=== PATIENT | male | born 1950 | race Caucasian/White ===

== ENCOUNTER 2018-08-27 07:26 | Outpatient (CLI) | payer MEDICARE, BC, SELFPAY ==
[2018-08-27 08:36] LABS: Uric Acid 6.2 mg/dL (3.5-7.2)
[2018-08-27 08:41] LABS: ALT 35 U/L (12-78); AST 27 U/L (15-37); Albumin 4.2 g/dL (3.4-5.0); Alkaline Phosphatase 64 U/L (46-116); Anion Gap 9.3 mmol/L (3-11); BUN 32 mg/dL (7-18); Bilirubin, Total 0.9 mg/dL (0.2-1.0); CO2 29.7 mmol/L (21.0-32.0); CREATININE 1.37 mg/dL (0.70-1.30); Calcium 9.1 mg/dL (8.5-10.1); Chloride 101 mmol/L (98-107); Cholesterol 226 mg/dL (50-200); Estimated GFR 51.83 (mL/min/1.73m2); Glucose 113 mg/dL (70-100); HDL Cholesterol 65 mg/dL (40-60); LDL CHOLESTEROL 136 mg/dL (<100); Potassium 4.7 mmol/L (3.5-5.1); Sodium 140 mmol/L (136-145); Total Protein 7.5 g/dL (6.4-8.2); Triglyceride 80 mg/dL (30-150)
== END 2018-08-27 07:46 ==
PROVIDERS: PCP Family Medicine; Visit Provider Family Medicine
DX: E78.5 Hyperlipidemia, unspecified (principal); M10.9 Gout, unspecified
CPT/HCPCS: 36415; 80053; 80061; 83721; 84550

== ENCOUNTER 2020-01-07 01:16 | Outpatient (CLI) | payer MEDICARE, BC, SELFPAY ==
[2020-01-07 12:46] LABS: ALT 42 U/L (16-63); AST 26 U/L (15-37); Albumin 4.2 g/dL (3.4-5.0); Alkaline Phosphatase 59 U/L (46-116); Anion Gap 6.7 mmol/L (3-11); BUN 32 mg/dL (7-18); Bilirubin, Total 0.7 mg/dL (0.2-1.0); CO2 31.3 mmol/L (21.0-32.0); CREATININE 1.53 mg/dL (0.70-1.30); Calcium 9.3 mg/dL (8.5-10.1); Calculated LDL 138 mg/dL (<100); Chloride 102 mmol/L (98-107); Cholesterol 225 mg/dL (<200); Estimated GFR 45.49 (mL/min/1.73m2); Glucose 109 mg/dL (74-106); HDL Cholesterol 62 mg/dL (40-60); Potassium 3.9 mmol/L (3.5-5.1); Sodium 140 mmol/L (136-145); Total Protein 7.4 g/dL (6.4-8.2); Triglyceride 129 mg/dL (<150)
== END 2020-01-07 01:36 ==
PROVIDERS: PCP Family Medicine; Visit Provider Family Medicine
DX: E78.5 Hyperlipidemia, unspecified (principal)
CPT/HCPCS: 36415; 80053; 80061

== ENCOUNTER 2021-08-15 13:09 | Outpatient (REF) | payer MEDICARE, BC, SELFPAY ==
[2021-08-15 15:04] LABS: Anion Gap 9.5 mmol/L (3-11); BUN 36 mg/dL (7-18); CO2 28.5 mmol/L (21.0-32.0); CREATININE 1.4 mg/dL (0.70-1.30); Calcium 8.8 mg/dL (8.5-10.1); Chloride 105 mmol/L (98-107); Glucose 104 mg/dL (74-106); Potassium 4.5 mmol/L (3.5-5.1); Sodium 143 mmol/L (136-145)
[2021-08-16 10:00] LABS: HIV-1/2 Ag & Ab Screen Negative (Negative)
== END 2021-08-15 13:10 | disposition home or self-care (01) ==
LOC: LBO 13:09
PROVIDERS: PCP Family Medicine; Visit Provider Family Medicine
DX: I10 Essential (primary) hypertension (principal); Z11.3 Encounter for screening for infections with a predominantly sexual mode of transmission; Z11.4 Encounter for screening for human immunodeficiency virus [HIV]
CPT/HCPCS: 36415; 80048; 87389

== ENCOUNTER 2021-08-15 13:42 | Outpatient (CLI) | payer MEDICARE, BC, SELFPAY | END 2021-08-15 13:43 | disposition home or self-care (01) | LOC: LBO 13:48 | PROVIDERS: PCP Family Medicine; Visit Provider Family Medicine ==

== ENCOUNTER 2021-09-06 11:07 | Outpatient (CLI) | payer MEDICARE, BC, SELFPAY ==
--- NOTE | 2021-09-06 10:30 | DI.RAD_ITS ---
Exam(s) XR KNEE RT 3V AP,LAT,SHRUTHI EXAM: XR KNEE RT 3V AP,LAT,SHRUTHI CLINICAL HISTORY: R KNEE PAIN. TECHNIQUE: 2D digital imaging was performed. Three views. COMPARISON: No exams were available for comparison FINDINGS: BONES: No acute fracture is present. No bony destructive lesion is seen. JOINTS: Moderate narrowing of the lateral femoral tibial joint space with moderate periarticular spu rring. Mild spurring seen elsewhere.. A small joint effusion is seen. SOFT TISSUE: Prominent venous varicosities in the medial soft tissues. Calcifications anterior to th e patella. IMPRESSION: Moderate degenerative changes of the lateral femoral tibial joint space. DATA REPOSITORY: RADIATION DOSE DELIVERED:
== END 2021-09-06 11:08 | disposition home or self-care (01) ==
LOC: DIORS 11:08
PROVIDERS: PCP Family Medicine; Referring Provider Family Medicine; Visit Provider Physician Assistant
DX: M17.11 Unilateral primary osteoarthritis, right knee
CPT/HCPCS: 20610; 73562; 99203; J1040

== ENCOUNTER → 2021-09-30 00:10 | Outpatient (CLI) | payer MEDICARE, BC, SELFPAY ==
--- NOTE | 2021-09-30 06:30 | DI.US_ITS ---
Exam(s) US AAA SCREENING EXAM: US AAA SCREENING CLINICAL HISTORY: screening for aaa, former smoker, z87.891 COMPARISON: US ABDOMEN ULTRASOUND (P) from 02/20/2017 FINDINGS: There is no evidence of abdominal aortic aneurysm. Maximum diameter of the abdominal aorta is 2.6 ce ntimeters, proximally. The abdominal aorta appears to taper normally. However, there does appear to be some prominence of the diameter of the partially visualized common i liac arteries. Right common iliac artery exhibits maximum diameter 1.8 cm. Left common iliac artery exhibits maximum diameter 1.3 cm. IMPRESSION: No evidence of abdominal aortic aneurysm. 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 DATA REPOSITORY:
== END ==
PROVIDERS: PCP Family Medicine; Visit Provider Family Medicine
DX: Z13.6 Encounter for screening for cardiovascular disorders (principal); Z87.891 Personal history of nicotine dependence
CPT/HCPCS: 76706

== ENCOUNTER 2022-01-02 11:40 | Outpatient (CLI) | payer MEDICARE, BC, SELFPAY ==
--- NOTE | 2022-01-02 11:00 | DI.RAD_ITS ---
Exam(s) XR KNEE LT 3V AP,LAT,SHRUTHI EXAM: XR KNEE LT 3V AP,LAT,SHRUTHI CLINICAL HISTORY: pain. TECHNIQUE: 2D digital imaging was performed. Three views. COMPARISON: CR XR KNEE RT 3V AP,LAT,SHRUTHI from 09/06/2021 FINDINGS: BONES: No acute fracture is present. No bony destructive lesion is seen. JOINTS: The knee is normally aligned. No joint effusion is seen. Mild joint space narrowing. Mild to moderate periarticular spurring, greater at the patellofemoral joint. SOFT TISSUE: Few posterior calcifications. IMPRESSION: Kpya-ym-bhsbmefd degenerative changes. DATA REPOSITORY: RADIATION DOSE DELIVERED:
== END 2022-01-02 11:41 | disposition home or self-care (01) ==
LOC: DIORS 11:41
PROVIDERS: PCP Family Medicine; Referring Provider Family Medicine; Visit Provider Physician Assistant Surgical
DX: M17.12 Unilateral primary osteoarthritis, left knee (principal); M17.11 Unilateral primary osteoarthritis, right knee
CPT/HCPCS: 20610; 73562; J1040

== ENCOUNTER → 2022-08-21 10:16 | Outpatient (BNVA) | payer MEDICARE, BC, SELFPAY | PROVIDERS: PCP Family Medicine; Referring Provider Family Medicine; Visit Provider Physician Assistant | DX: M17.11 Unilateral primary osteoarthritis, right knee (principal); M17.12 Unilateral primary osteoarthritis, left knee | CPT/HCPCS: 20610; J1040 ==

== ENCOUNTER 2022-09-04 03:28 | Outpatient (CLI) | payer MEDICARE, BC, SELFPAY ==
[2022-09-04 14:41] LABS: HCT 41.4 % (40.0-50.0); MCHC 33.8 % (32.0-36.0); MCV 101 fL (80-95); MPV 10.5 fL (8.0-11.0); Platelet Count 114 10^3/uL (130-400); RBC 4.12 10^6/uL (4.36-5.78); RDW 14.5 % (11.8-14.1); RDW-SD 53.8 fL; WBC 7.17 10^3/uL (4.4-10.8)
[2022-09-04 18:10] LABS: Anion Gap 6.3 mmol/L (3-11); BUN 29 mg/dL (7-18); CO2 30.7 mmol/L (21.0-32.0); CREATININE 1.4 mg/dL (0.70-1.30); Calcium 9.3 mg/dL (8.5-10.1); Chloride 103 mmol/L (98-107); Estimated GFR 53.74 (mL/min/1.73m2); Glucose 107 mg/dL (74-106); Potassium 4.4 mmol/L (3.5-5.1); Sodium 140 mmol/L (136-145)
== END 2022-09-04 03:29 | disposition home or self-care (01) ==
LOC: LBO 03:30
PROVIDERS: PCP Family Medicine; Visit Provider Student in an Organized Health Care Education/Training Program
DX: M17.11 Unilateral primary osteoarthritis, right knee; Z01.818 Encounter for other preprocedural examination; Z01.812 Encounter for preprocedural laboratory examination
CPT/HCPCS: 36415; 80048; 85027; 77073

== ENCOUNTER 2022-09-04 15:02 | Outpatient (CLI) | payer MEDICARE, BC, SELFPAY ==
--- NOTE | 2022-09-04 14:45 | DI.RAD_ITS ---
Exam(s) XR STANDING ALIGNMENT EXAM: XR STANDING ALIGNMENT CLINICAL HISTORY: PRE OP R TKA. TECHNIQUE: 2D digital imaging was performed. Four images were obtained. COMPARISON: CR XR KNEE RT 3V AP,LAT,SHRUTHI from 09/06/2021 CR XR KNEE LT 3V AP,LAT,SHRUTHI from 01/02/2022 FINDINGS: BONES: There are degenerative changes of the hips bilaterally characterized by joint space narrowing and acetabular spurring. There are degenerative changes of the knees bilaterally characterized by mookie int space narrowing and periarticular spurring. On the right, the findings are most prominent latera lly. On the left, the findings are most prominent medially. The ankles are well maintained.There is no significant leg length discrepancy. SOFT TISSUE: Atherosclerosis is present. IMPRESSION: Osteoarthritis of the knees. DATA REPOSITORY: RADIATION DOSE DELIVERED:
== END 2022-09-04 15:03 | disposition home or self-care (01) ==
LOC: DIORS 15:03
PROVIDERS: PCP Family Medicine; Referring Provider Family Medicine; Visit Provider Physician Assistant
DX: M17.11 Unilateral primary osteoarthritis, right knee (principal)
CPT/HCPCS: 77073

== ENCOUNTER 2022-09-12 05:56 | Day surgery (SDC) | payer MEDICARE, BC, SELFPAY ==
[2022-09-12] VITALS (12 sets, daily range): BP systolic 92–107; BP diastolic 35–86; PULSE 50–71; RESP 15–18; TEMP 36.2–36.7; O2SAT 92–100; BMI 29.4
[2022-09-12] MEDS: Gabapentin 300 MG CAP PO (06:18)
[2022-09-12] MEDS: Acetaminophen 500 MG TAB 1000 MG PO (06:18)
[2022-09-12] MEDS: Celecoxib 200 MG CAP 400 MG PO (06:18)
--- NOTE | 2022-09-12 06:26 | W.ANESPRE ---
General Info Date of Service Date Performed: 09/12/22 Height: 5 ft 11 in Weight: 95.6 kg Body Mass Index (BMI): 29.4 Surgical Procedure: Operation Date: 09/12/22 09:25 Proposed Procedure Side Surgeon p Knee Total Arthroplasty, Cementless CR Right Jose Guadalupe Puentes MD Meds Allergies and Home Medications Allergies Allergy/AdvReac Type Severity Reaction Status Date / Time Beta-Blockers AdvReac Intermediate Drowsiness Verified 09/12/22 06:06 (Beta-Adrenergic Bloc 1978 simvastatin AdvReac Intermediate tired Verified 09/12/22 06:06 Home Medication Medication Instructions Recorded acetaminophen 500 mg tablet 1,000 mg PO BID PRN 01/31/16 lovastatin 40 mg tablet See Rx Instructions .Route 08/14/22 .COMPLEX #90 tabs allopurinol 300 mg tablet 300 mg PO HS 09/11/22 lisinopril 10 1 tab PO HS 09/11/22 mg-hydrochlorothiazide 12.5 mg tablet omeprazole magnesium 20 mg 20 mg PO HS 09/11/22 capsule,delayed release Current Visit Medications: Current Medications Generic Name Dose Route Start Last Admin Trade Name Francisco Javierq PRN Reason Stop Dose Admin Acetaminophen 1,000 mg 09/12/22 06:00 09/12/22 06:18 Acetaminophen 500 Mg Tab PO 09/12/22 16:00 1,000 mg PREOP LEA Administration Celecoxib 400 mg 09/12/22 06:00 09/12/22 06:18 Celecoxib 200 Mg Cap PO 09/12/22 16:00 400 mg PREOP LEA Administration Gabapentin 300 mg 09/12/22 06:00 09/12/22 06:18 Gabapentin 300 Mg Cap PO 09/12/22 16:00 300 mg PREOP LEA Administration Tranexamic Acid 1,000 mg/ 60 mls @ 360 mls/hr 09/12/22 06:00 Sodium Chloride IVPB 09/12/22 16:00 PREOP LEA Ringer's Solution 1,000 mls @ 80 mls/hr 09/12/22 06:00 IV 09/12/22 23:59 INFUSION LEA Cefazolin Sodium/Dextrose 2 gm in 50 mls @ 100 mls/hr 09/12/22 06:00 Ancef Duplex IVPB 09/12/22 23:59 PREOP LEA IV Miscellaneous Supplies 1 each 06/13/23 06:00 Iv Access IV 09/12/22 23:59 DIRECTED LEA Sodium Chloride 0 ml 09/12/22 06:00 Normal Saline Flush 10 Ml Syr IV 09/12/22 23:59 PRN PRN Sodium Chloride 0 ml 09/12/22 06:00 Normal Saline 10 Ml Vial IJ 09/12/22 23:59 DIRECTED PRN Sterile Water 0 ml 09/12/22 06:00 Water,Injection,Sterile 10 Ml Vial IJ 09/12/22 23:59 DIRECTED PRN PFSH Active Problems Active Problems: Problem Status Onset Code 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 Acquired thrombocytopenia 01/14/01 D69.6 Cirrhosis K74.60 Family history of colon cancer in mother 08/07/16 Z80.0 Gout 04/02/85 M10.9 Hyperlipidemia 10/31/08 E78.5 Hypertension 04/03/77 I10 Pain, joint, multiple sites 06/22/11 M25.50 Malignant melanoma of skin of trunk 10/31/05 C43.59 Overweight 06/22/11 E66.3 Proteinuria 06/29/98 R80.9 Varicose veins of right lower extremity 10/23/14 I83.91 Chronic hepatitis 04/02/04 K73.9 GERD (gastroesophageal reflux disease) K21.9 Trigger finger M65.30 History of hepatitis C Z86.19 Cataract H26.9 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 Surgical History Surgical History Colonoscopy - IV Sedation (09/01/16) Colonoscopy - MAC (07/26/09) EGD - MAC (01/06/15) w/bx, antral mucosa w intestinal metaplasia and severe focally erosive reacitve goatropathy, H/O eye surgery 05/2022 right Hx of cataract removal with insertion of prosthetic lens 2020 bilateral LIVER BIOPSY (01/05/05) [facility] – [place], CIRRHOSIS S/P left cataract extraction (09/14/20) S/P right cataract extraction (09/01/20) Tobacco Smoking/Tobacco Use Status: Former Tobacco Use Alcohol Alcohol Intake: current Alcohol intake frequency: 0-2 drinks per day Alcohol type: wine Substance Use Substance use: Never Substance use type: does not use Vital Signs and Lab Results Vital Signs Most Recent Vital Signs in EMR: Most Recent Vital Signs Temp Pulse Resp BP Pulse Ox 36.4 C L 70 17 107/86 97 09/12/22 06:10 09/12/22 06:10 09/12/22 06:10 09/12/22 06:10 09/12/22 06:10 Lab Results Blood Type / Crossmatch: No Data to Display Complete Blood Count: White Blood Count 7.17 10^3/uL (4.4-10.8) 09/04/22 14:34 Red Blood Count 4.12 10^6/uL (4.36-5.78) L 09/04/22 14:34 Hemoglobin 14.0 g/dL (13.5-17.5) 09/04/22 14:34 Hematocrit 41.4 % (40.0-50.0) 09/04/22 14:34 Platelet Count 114 10^3/uL (130-400) L 09/04/22 14:34 Complete Metabolic Panel: Sodium 140 mmol/L (136-145) 09/04/22 14:34 Potassium 4.4 mmol/L (3.5-5.1) 09/04/22 14:34 Chloride 103 mmol/L (98-107) 09/04/22 14:34 Carbon Dioxide 30.7 mmol/L (21.0-32.0) 09/04/22 14:34 BUN 29 mg/dL (7-18) H 09/04/22 14:34 Creatinine 1.4 mg/dL (0.70-1.30) H 09/04/22 14:34 Est GFR (CKD-EPI 2020) 53.74 (mL/min/1.73m2) 09/04/22 14:34 Calcium 9.3 mg/dL (8.5-10.1) 09/04/22 14:34 Glucose 107 mg/dL (74-106) H 09/04/22 14:34 Liver Function Panel: No Data to Display Coagulation Panel: No Data to Display Cardiac Panel: No Data to Display Arterial Blood Gas: No Data to Display Venous Blood Gas: No Data to Display Pancreas Panel: No Data to Display Thyroid Panel: No Data to Display Infectious Disease: No Data to Display Blood Cultures: No Data to Display Toxicology Panel: No Data to Display Imaging and Studies Imaging and Studies Study information below may be from another EMR and interpreted by another provider. Please see original notes in EMR for more complete details. EKG Summary: 08/22: sinus. Anesthesia Assessment and Plan Anesthesia History Personal History: No History of Anesthesia Complications Family History: No Family History of Anesthesia Complications Exercise Tolerance Exercise Tolerance: Metabolic Equivalents<4 Cardiac & Pulmonary Exam Cardiac Exam: Normal S1/S2 Heart Sounds Pulmonary Exam: Clear Bilateral Breath Sounds Implantable Cardiac Device Does patient have a Pacemaker or an ICD?: No Airway Exam Known Difficult Airway: No Mallampati Class: 2 Mouth Opening: Normal (> 3cm) Thyromental Distance: Greater than 3 cm Neck Range of Motion: Full ROM Neck Circumference: Normal Teeth Condition: Normal Dentition ASA Classification ASA Score: ASA 2 Emergency Case?: No NPO Status NPO Status: NPO Clears >2 hours, Solids >8 hours Anesthesia Plan Resuscitation Status: Full Code Anesthesia Technique: Spinal Anesthesia Airway Planned: Natural Airway Pain Management: Surgeon and patient request nerve block Monitors Used: Standard Monitors Preoperative Comments:: 72 yo male for TKA. Sig PMHx: barretts/GERD (omeprazole), hep c (treated)/cirrhosis, HTN (lisinopril, HCTZ), former smoker, occ EtOH,
[2022-09-12] MEDS: Lactated Ringers 1,000 ML 80 ML IV (06:36)
[2022-09-12] MEDS: ceFAZolin 2 GM/50 ML BAG IVPB (07:30)
--- NOTE | 2022-09-12 08:17 | ANES.NERVE_ITS ---
Nerve Block Single Injection Procedure Date and Time Date Performed: 09/12/22 Procedure Start: 08:18 Location Where Procedure Performed Procedure Location: Day Surgery Unit Reason Performed: Postoperative Analgesia Requesting Provider: Jose Guadalupe Puentes Timeout Performed Timeout Performed: Yes Monitoring Used ECG, Blood Pressure, SpO2 and ETCO2 Sterility Sterility: Hand Hygiene, Surgical Cap, Surgical Mask and Sterile Gloves Sedation Given During Procedure Sedation Given (Indicate Dose Given): Versed IV Dose:: 1mg Patient Mental Status Patient Mental Status: Awake Nerve Block 1st Nerve Block: Laterality: Right Block Type: Adductor Canal Ultrasound Image Saved?: Yes Needle / Catheter Used: 100mm SonoPlex II Local Anesthetic Bolus (Indicate Dose Given): Lidocaine used for local in filtration of skin, Injected in 3-5ml increments after negative blood aspiration and Bupivacaine 0.375% Dose:: 10 mL Additives (Indicate Dose Given): Normal Saline Ultrasound: Sterile probe cover and gel used Nerve Stimulator: Supplement to Ultrasound use Paresthesia: None Procedure Tolerated: No Complications and Patient tolerated well Procedure Outcome: Successful Performed By: Trev Espinosa Supervised By: Rodrigo Phillips
--- NOTE | 2022-09-12 09:08 | ROE_ITS ---
Date of service: 09/12/22 Time of Service: 09:08 Operative Note Operative Note DATE OF PROCEDURE: 09/12/22 PRE-OP DIAGNOSIS: Right Knee Osteoarthritis POST-OP DIAGNOSIS: same PROCEDURE: Right Total Knee Replacement with Intraoperative Navigation SURGEON: Jose Guadalupe Puentes VAULT ATTENDANT: Elena Smith ANESTHESIA TYPE: Spinal Refer to Anesthesia Record ESTIMATED BLOOD LOSS: 100 PATHOLOGY: none sent TOURNIQUET TIME: 0 COMPLICATIONS: None Patient was transported to: PACU Patient's condition: stable Implants: 1. Depuy Attune Cementless Cruciate Retaining Femoral Component, Size 8 2. Depuy Attune Cementless Fixed Bearing Tibial Component, Size 7 3. Depuy Attune 8x10mm CR/FB Poly 4. Depuy Attune Patellar Component, Size 38 Indications: I have seen Anthony in clinic for symptoms of RIGHT knee arthritis, confirmed with radiographic findings. Anthony has exhausted nonoperative methods and was having significant limitations in daily function and desired better function and less pain. I discussed the technical details of a knee replacement. I expla ined the risks of the procedure to include, but not limited to, bleeding, infection, pain, stiffness, fracture, damage to nerves and vessels, damage to muscles and tendons, loosening, need for repeat procedure, blood clot and cardiopulmonary demise. Despite these risks, he elected to proceed. Findings: There was significant signs of arthritis throughout the knee involving all 3 compartments with a valgus deformity. Procedure Description: Anthony was greeted in the preoperative holding area where the correct side was identified and marked. The consent was reviewed with the patient and signed. The history and physical was updated. All questions were answered. Preoperative mediacations were administered: Acetaminophen 1000mg, Celebrex 400mg, and Gabapentin 300mg. An adductor canal block was then administered by the anesthesia team in the PACU. He was taken back to the operating room. A spinal anesthestic was then administered. The patient was placed into the supine position on the operating room table. A nonsterile tourniquet was placed high onto the leg. Posts were placed for positioning during the procedure. All bony prominences were well padded. Prophylactic antibiotics in the form of Cefazolin were administered. 1g of Tranxemic Acid was given intravenously within 30 minutes of incision. The right leg was then prepped with Chloraprep and draped in a standard fashion with impervious stockinette. A second prep with Chloraprep was performed prior to application of Iodine impregnated skin protection. A timeout to confirm correct identity, side and site, procedure, allergies, anesthesia, and medical concerns was performed. With the knee in some flexion, a midline incision was made overlying the knee. Full thickness skin flaps were raised once the extensor mechanism was encountered. These were raised medially and laterally. Any bleeding was controlled with electrocautery. Once the extensor mechanism was fully exposed, a medial parapatellar arthrotomy was performed in a flexed position. All bleeding from the arthrotomy and the geniculate arteries was coagulated. A medial subperiosteal peel was performed with electrocautery to the midcoronal plane. The fat pad was removed while keeping the patellar tendon protected. The anterior distal femur synovium was removed for later visualization. The ACL and PCL were resected and the anterior horn of the lateral meniscus was transected. The knee was then flexed with the patella everted. A single starting pin was then placed 1cm anterior to the PCL insertion and the notch in the direction of the femoral head. The OrthoAlign device was applied over the pin. It was oriented to be in line with the epicondylar axis and the trochlear groove. It was then pinned into place. The navigation computer was then turned on and calibrated. The distal femur cut was set at 0 degrees varus/valgus and 3 degrees flexion. The distal femur cutting guide then was positioned for a 9mm cut. The distal femur was cut with an oscillating saw while protecting the soft tissues. The tibia was then addressed. The OrthoAlign device was placed over the tibial tubercle and medial tibia and secured into position. Once again, OrthoAlign was calibrated and then set for a 0 degree varus/valgus cut and 5 degrees of posterior slope. With this locked into position, the cut thickness stylus was used to assess cut thickness. The lateral side, most involved side, was set for a 4mm cut. This was then held in position and pinned into place with 2 additional pins and a cross pin for stability. The medial and lateral collateral ligaments were protected and the cut was performed. With this completed, it was assessed and noted to be of appropriate dimensions. The guide and OrthoAlign was removed. A spacer block was inserted and the knee was brought into extension to ensure enough space was present. The femur was then sized as a size 8. The Orthoalign gap balancing device was then placed in extension. This was used to ensure that the ligaments were properly balanced with up to 2 to 3 mm laxity laterally compared medially. The extension gap was measured as 22mm. The knee was then brought into 90 degrees of flexion and the ligament music library assistant was once again placed. Under the same amount of force the flexion gap was measured. The Attune specific jig was placed and the flexion gap was made to match the extension gap. The 4-in-1 cutting guide was the placed. An sun wing was used to confirm appropriate position of the anterior cut to avoid notching. This cutting guide was ensured to be flush on the cut surface and then pinned into place with headed pins. While protecting the soft tissues, quad tendon, and collateral ligaments, the anterior and posterior cuts were performed with a saw. The central two pins were removed and the posterior and anterior chamfers were cut next. The notch-cutting guide was placed. This was pinned to lateralize the femoral component as much as possible while keeping it flush on the cut surface. This was then pinned into position. A saw was used to make the notch cut. A rasp smoothed the cut surfaces. The medial and lateral menisci were removed. A trial femoral component was then inserted, impacted down to the cut surfaces, and the lug holes were drilled. A provisional trial tibial component was placed and the knee was brought through range of motion. The polyethylene was trialed until there was good flexion and extension with excellent stability to the medial and lateral collaterals. The patella was tracking without thumbs. A size 10mm polyethylene component provided the best range of motion and stability with less than 2mm gapping with medial and lateral stress and full extension without significant hyperextension. The tibial cut surface was fully exposed. The tibia was then sized as a 7. The tibia had been previously marked during trialing to correspond to the center of the tibial component to help with rotation. The trial was aligned to this joselito, approximately rotated to the medial 1/3rd of the tibial tubercle. The trial was pinned into place. The tibia was prepared with a reamer and a keel punch and lug holes. The knee was then brought into extension and the patella was measured as 28mm. Using the patellar clamp and cut guide, this was resected to a flat surface with at least 13mm of thickness remaining. The size 38 patella fit the best. This was oriented and then clamped into position. The lugs were drilled. The trial components were removed. The final components were opened on the back table. The periosteal and capsular tissues, especially posteriorly, around the knee were then systematically injected with a periarticular cocktail consisting of 246mg of Ropivacaine, 0.5mg of Epinephrine, 0.08mg of Clonidine, and 30mg of Ketorolac, diluted to 100cc. On the back table, with the implants opened, the cement was mixed. One batch of high viscosity cement was prepared with vacuum assistance. After the cement was ready a small amount was placed on the cut surface of the patella and the patellar button was clamped into position and held. While the cement was hardening, the cementless knee components were placed. Starting with the tibial component, the tibia was subluxed anteriorly and the lug holes of the component were lined up. The tibia was then impacted with an impactor and mallet until the tibial component was in contact with the tibia. Then, the femoral component was inserted. The lug holes were aligned and the component was impacted into position. The final polyethylene was then inserted. The knee was irrigated with Surgiphor Betadine solution. This was allowed to sit in the knee for 3 minutes and then it was thoroughly irrigated out with saline. After the cement had finally cured, approximately 15min, the clamp was removed from the patella and the knee was taken through range of motion. The patella was tracking with a no-thumbs technique. The capsule was then reapproximated with a No. 1 Vicryl at multiple locations. The capsule was finally closed with a No. 2 Stratafix, barbed suture. Deep tissues were then reapproximated with 0 Vicryl and 2-0 Monocryl. The skin was closed with a running 3-0 Monocryl in a subcuticular fashion. This was reinforced with skin glue. A Mepilex silver dressing was applied along with a [id number] ZULMA wrap. A CryoCuff was applied. Anthony was transferred to the hospital bed without difficulty an suffering no apparent complication. Anthony has a good prognosis. Physical therapy will start today and without restrictions, weight-bearing as tolerated. Aspirin 81mg BID will be used for DVT prophylaxis.
--- NOTE | 2022-09-12 10:23 | W.ANESPOSTOP ---
Postoperative Evaluation Date, Time and Location Date Performed: 09/12/22 Time Performed: : Patient Location: PACU Vital Signs Most Recent Imported Vital Signs: Most Recent Vital Signs Temp Pulse Resp BP Pulse Ox 36.5 C 54 L 17 102/61 98 09/12/22 10:06 09/12/22 10:06 09/12/22 10:06 09/12/22 10:09/12/22 10:06 Pain Score Most Recent Pain Score: Most Recent Pain Score Pain Level 0 09/12/22 10:06 Assessment Mental Status: Awake (Alert & Oriented to Patient Baseline) Airway and Respiratory Function: Patent airway with normal (patient baseline) respiratory exam Cardiovascular Function: Hemodynamically Stable Hydration Status: Adequately Hydrated Nausea & Vomiting: No Nausea or Vomiting Pain: Pain is tolerable per patient Peripheral Nerve Block: Regional nerve block not resolved at time of post operative discharge
[2022-09-12] MEDS: oxyCODONE 5 MG TAB PO (10:56)
--- NOTE | 2022-09-12 12:44 | DSE_ITS ---
Date of service: 09/12/22 Time of Service: 12:44 DS: Diagnosis Discharge Diagnosis (1) Degenerative joint disease of right knee: Status: Chronic Discharge Plan Disposition Patient Disposition: Home Condition: Good Discharge Details Reason For Visit: Right knee DJD Attending Provider: Jose Guadalupe Puentes Primary Care Provider: Hilario Mai Home Meds and New Rx's Prescriptions: New acetaminophen 500 mg tablet 1,000 mg PO Q8H PRN Qty: 90 0RF Rx Instructions: Take two tablets up to every 8 hours as needed for pain aspirin 81 mg tablet,delayed release (DR/EC) 81 mg PO BID 30 Days Qty: 60 0RF celecoxib [Celebrex] 200 mg capsule 200 mg PO BID PRNQty: 60 0RF Rx Instructions: Take one tablet twice daily for pain and inflammation docusate sodium [Colace] 100 mg capsule 100 mg PO BID Qty: 30 0RF dexamethasone 4 mg tablet 4 mg PO DAILY Qty: 2 0RF Rx Instructions: Take one tablet once daily for two days gabapentin 300 mg capsule 300 mg PO QHS Qty: 14 0RF Rx Instructions: Take one tablet at bedtime oxycodone 5 mg tablet 5 mg PO Q6H PRNQty: 12 0RF Rx Instructions: Take one tablet up to every 6 hours as needed for severe postoperative pain Continued lovastatin 40 mg tablet See Rx Instructions .ROUTE .COMPLEX Qty: 90 3RF Dose Instruction: TAKE ONE TABLET BY MOUTH EVERY DAY Rx Instructions: TAKE ONE TABLET BY MOUTH EVERY DAY allopurinol 300 mg tablet 300 mg PO HS Rx Instructions: prevent gout lisinopril-hydrochlorothiazide 10-12.5 mg tablet 1 tab PO HS omeprazole magnesium 20 mg capsule,delayed release(DR/EC) 20 mg PO HS Rx Instructions: due to presence of Pack's esophagus and gastroesophageal reflux Discontinued acetaminophen 500 MG tablet 1,000 mg PO BID PRN Discharge Instructions Additional Instructions: Total Knee Discharge Instructions Activity: The most important activity is to walk and to work on gentle motion (both flexion and extension). You should try to take short walks a few times a day. It is important that when resting you work on keeping the knee straight. Avoid putting a pillow behind the knee as this will encourage flexion. Work on range of motion exercises as provided by Physical Therapy. - Start outpatient physical therapy within 2 weeks. - You should wear the SEVERO hose on both legs for 2 weeks. You may remove these at night. You may also use any compression sock in place of the SEVERO hose. - Utilize [employer] to review exercises, see videos on exercises and obtain basic information pertaining to your surgery and your recovery. Dressing: Remove the Gentry wrap by 2 days after your surgery and put on the SEVERO stocking given to you from the hospital. Keep the surgical dressing (underneath the GENTRY wrap) in place for at least one week. After the first week it may be removed and replaced with light gauze and tape or nothing. The wound and dressing may get wet after 3 days but avoid soaking the dressing or otherwise it will need to be changed. Many people prefer covering the dressing with cling wrap (saran wrap) to minimize it from getting soaked. If it gets wet, just pat dry. If it starts to peel off then it will need to be changed. Medications: - You should take Tylenol and anti-inflammatory Celebrex as your primary pain control medications. If the Celebrex is too expensive or not covered, please call the office for another alternative (Advil/Ibuprofen or Naproxen/Aleve) - You have been prescribed a stronger pain medication Oxycodone for breakthrough pain, take as needed as prescribed. - You take a stomach acid reduction agent Omeprazole at baseline - continue with this medication to help reduce stomach acid and reflux. - You have been prescribed Gabapentin to take at night for restlessness and nerve pain. - You will be taking Aspirin 81mg twice a day for DVT prevention unless instructed otherwise. - You have also been prescribed Decadron to take to control post-operative nausea and pain. You will start this tomorrow. - If you have constipation you should take Colace (which has been prescribed) or Miralax (which is available [id number]). It takes most people 3-4 days to have a bowel movement. Follow-up: 2 weeks If you have any acute concerns or questions, please do not hesitate to contact the office at [phone]. You may contact Dr. Puentes with any questions after hours through the hospital at [phone] or on his cell phone at [phone]. Stand Alone Forms: Anesthesia Discharge Inst., Nilas.Nerve Block Instructions, Zoë Nuñez (DSU) Referrals: Jose Guadalupe Puentes MD [ [facility] STAFF PHYSICIAN] - Equipment/Supplies: Walker Activity:: Elevate Remove Dressings/Wound Care:: Do Not Remove Shower/Bathe:: Cover Diet:: As Tolerated Discharge Orders Discharge Orders: Discharge Order (Routine); Ordered 09/12/22 Ordered By: Jose Guadalupe Puentes DS: Summary Time Spent with Patient providing and/or coordinating discharge services: Less than 30 minutes Status at Discharge Functional status at discharge: uses cane/walker Overall status at discharge: patient is progressing back to baseline Mental Status: mental status grossly normal Speech and Movement: speech and movement normal Mood: congruent mood Affect: normal affect Exam Psych Mental Status: mental status grossly normal Speech and Movement: speech and movement normal Mood: congruent mood Affect: normal affect DS: Data Vitals/I&O Vitals and I&O: Vital Signs Temperature 97.5 F L 09/12/22 06:10 Pulse 70 09/12/22 06:10 Pulse Rhythm Regular 09/12/22 06:10 Respiratory Rate 17 09/12/22 06:10 Blood Pressure 107/86 09/12/22 06:10 Pulse Oximetry 97 09/12/22 06:10 Oxygen Delivery Method Room Air 09/12/22 06:10 Oxygen Flow Rate 0 09/12/22 06:10 Pain Level 2 09/12/22 06:10 Intake & Output 09/11/22 09/11/22 09/12/22 11:59 23:59 11:59 Weight 211 lb 210 lb 12.191 oz PFSH All Active Problems Pack esophagus (Acute) Acquired ichthyosis (Acute 03/11/12) Acquired thrombocytopenia (Acute 01/14/01) HEP C (TREATED SUCCESSFULLY) AND CIRRHOSIS Cirrhosis (Acute) Hep C 2003, bx [facility] [place] 12/2004, cleared Hep C virus by 01/2006; hep C +/- EtOH; mild varicosities 12/2014 EGD Family history of colon cancer in mother (Acute 08/07/16) Mother had surgery age 72, but lived to Gout (Acute 04/02/85) ALLOPURINOL , RESUMED Hyperlipidemia (Acute 10/31/08) goal LDL <130; RX begun 10/2008 Hypertension (Acute 04/03/77) h/o PHEO W/U 1977 neg; high bp at colonoscopy 2009 Pain, joint, multiple sites (Acute 06/22/11) ?early djd Malignant melanoma of skin of trunk (Acute 10/31/05) H/O ON TRUNK back 2005, [facility] Overweight (Acute 06/22/11) GOAL 190LBS Proteinuria (Acute 06/29/98) Varicose veins of right lower extremity (Acute 10/23/14) Chronic hepatitis (Chronic 04/02/04) GERD (gastroesophageal reflux disease) (Chronic) Trigger finger (Acute) History of hepatitis C (Chronic) Treated with interferon 2004, presumably cured Cataract (Chronic) Cystoid macular edema (Acute) Swollen R knee (Acute) Degenerative joint disease of right knee (Chronic) Depo-Medrol injection: 09/06/2021, 01/02/2022 Degenerative joint disease of left knee (Acute) Depo-Medrol injection: 08/21/22 01/02/22 Medical History Epiretinal membrane (ERM) of right eye 08/2021 Dr Bentley[facility] Surgical History Colonoscopy - IV Sedation (09/01/16) Colonoscopy - MAC (07/26/09) EGD - MAC (01/06/15) w/bx, antral mucosa w intestinal metaplasia and severe focally erosive reacitve goatropathy, H/O eye surgery 05/2022 right Hx of cataract removal with insertion of prosthetic lens 2020 bilateral LIVER BIOPSY (01/05/05) [facility] [place], CIRRHOSIS S/P left cataract extraction (09/14/20) S/P right cataract extraction (09/01/20) Family History Mother , cancer issues at age 92. Colon cancer 72 Father , [place] at age 72. No problems noted. Brother Age: 65 Alcohol abuse Essential hypertension Social History (Updated 01/31/21 @ 10:17 by Darya Hernandez LPN) Smoking/Tobacco Use Status: Former Tobacco Use Quit Date: 04/02/84 Smoking risk assessment performed?: Yes Alcohol Intake: current Alcohol Intake frequency: 0-2 drinks per day Alcohol type: wine Drug use: Never Substance use type: does not use Household members: none Housing: house Number of Children: 0 Communication Needs: Corrective Lenses current occupation: retired from [employer] Current gender identity: male What type of physical activity do you participate in: walking Duration: 30-45 minutes/day Frequency: daily Seatbelt use: always Drive intox or ride w/intox bottom hoop driver: No Working smoke detector in home: Yes Fire extinguisher in home: Yes Carbon monox detector in home: Yes Do you feel safe at home: Yes Additional Social history: Live alone Time Spent with Patient Time Spent with Patient: <45 minutes Time was spent: obtaining and/or reviewing separately otained hiistory, counseling the patient and care coordination
--- NOTE | 2022-09-12 13:12 | IN_ITS ---
Date of service: 09/12/22 Time of Service: 12:32 PT Notes Visit Reasons: Right knee DJD Physical Therapy Day Surgery Initial Evaluation Date: 09/12/2022 Referring Doctor: GUILLE Arevalo PT Orders: PT CONSULT: S/P Ortho surgery Precautions: WBAT right LE with AD. Patient Profile/Admitting Diagnosis: Anthony is a 72-year-old male with degenerative joint disease of the right knee and status post right total knee arthroplasty on postoperative day 0. PMHX: Medical History?(Updated 08/21/22 @ 12:43 by GUILLE Allen) Epiretinal membrane (ERM) of right eye 09/20/21 Dr Bentley[facility] Surgical History? Colonoscopy - IV Sedation (09/01/16) Colonoscopy - MAC (07/26/09) EGD - MAC (01/06/15) w/bx, antral mucosa w intestinal metaplasia and severe focally erosive reacitve goatropathy, LIVER BIOPSY (01/05/05) [facility] [place], CIRRHOSIS S/P left cataract extraction (09/14/20) S/P right cataract extraction (09/01/20) Social History/Home Situation: Patient lives alone in a private home with 2 steps to enter with a rail on the right side going up. Independent with all aspects of ADLs prior to surgery. Equipment Owned/DME: None Subjective: Agreeable to consult. Denies headache, chest pain, and dizziness throughout session. Reports 1?2/10 pain in the right knee with weightbearing. Objective: General Observation: Supine in bed. Gentry wraps to right LE. Cryocuff to right knee. TDS to left leg. Mental Status: Alert and oriented x4 Pain: 1?2/10 pain in the right knee ROM: Right Lower Extremity: Hip flexion WFL. Hip abduction WFL. Knee flexion 20 degr ees to 90 degrees. Knee extension -20 degrees. Ankle dorsiflexion WFL. Ankle plantarflexion WFL. Left Lower Extremity: Hip flexion WFL. Hip abduction WFL. Knee flexion WFL. Ankle dorsiflexion WFL. Ankle plantarflexion WFL. Strength: Right Lower Extremity: Hip flexors 4/5. Hip abductors 4/5. Knee flexors 3-/5. Knee extensors 3-/5. Ankle dorsiflexors 5/5. Ankle plantarflexors 5/5. Left Lower Extremity:Hip flexors 5/5. Hip abductors 5/5. Knee flexors 5/5. Knee extensors 5/5. Ankle dorsiflexors 5/5. Ankle plantarflexors 5/5. Sensation: Intact as to pain and light pressure in bilateral lower extremities Bed Mobility/Transfers: Supine to sit standby assist Sit to stand standby assist Stand to sit standby assist Bed to chair standby assist Gait: Instructed patient with level surface ambulation of 150 feet using front wheeled walker with step to gait pattern requiring standby assist only. Good quad activation. Denies headache, chest pain, and lightheadedness throughout activity. No loss of balance. No shortness of breath. Stairs: Ascended and descended 6 x 4 inch steps and 4 x 6 inch steps while holding onto right rail going up/left for rail going down with step to gait pattern requiring only standby assist with no report of increased pain. Balance: Static Sitting: Normal Dynamic Sitting: Normal Static Standing: Fair Dynamic Standing: Fair Special Tests: Mobility Limitations Standardized Measure [facility] AM-PAC 6 clicks Basic Mobility Inpatient Short Form: Raw Score: 24 CMS Score: 0% deficit Informed Consent/Education: Patient was instructed in purpose of PT consult. Packet containing TKA exercise protocol has been given to patient. Education and training on initial set of exercises that can be done at home have been completed with patient: Exercises - Supine Quadricep Sets - 1 x daily - 7 x weekly - 1 sets - 10 reps - 5 hold - Supine Heel Slide - 1 x daily - 7 x weekly - 1 sets - 10 reps - 5 hold - Supine Ankle Pumps - 1 x daily - 7 x weekly - 1 sets - 10 reps - 5 hold - Small Range Straight Leg Raise - 1 x daily - 7 x weekly - 1 sets - 10 reps - 5 hold - Seated March - 1 x daily - 7 x weekly - 1 sets - 10 reps - 5 hold Assessment: Patient requires the use of a front wheel walker to maximize independence and reduce fall risk.Patient presents with clinical signs and symptoms consistent with current/admitting diagnoses that have resulted to mobility limitations, gait instability, generalized weakness, and impairment of motor control as demonstrated by the following impairment level findings: 1. Decreased strength to right knee major muscle groups 2. Impaired standing balance 3. Limitation of joint range of motion in right knee Impairments are contributing to the following functional limitations: 1. Inability to safely ambulate without assistive device 2. Increase completion time for mobility ADL performance 3. Increased fall risk Patient is assessed as a [id number] moderate complexity complexity based on the following: History: 72-year-old male with impairment level findings, functional limitations, and past medical history as indicated above Examination: Demonstrable impairment in strength, balance, and mobility level with underlying impairments and functional limitations as documented above Presentation: Evolving Decision Makin moderate complexity Goals: N/A. PT evaluation and 1-2 treatment sessions only for functional mobility training using recommended AD and for HEP instruction. Plan of Care/Treatment Plan: N/A. PT evaluation and 1-2 treatment session only for functional mobility training using recommended AD and for HEP instruction. DISCHARGE RECOMMENDATIONS: Home when medically cleared by orthopedic surgeon. Recommend outpatient PT services in order to optimize functional mobility outcomes and facilitate return to independent community ambulation without an assistive device. TREATMENT CODE/TIME: 55351 x 20 minutes, 70773 x 12 minutes beginning at 12:32 PM Thank you for the opportunity to participate in the care of this patient. Debbie Pearce PT, DPT, CLT [facility] [place], [place]
== END 2022-09-12 13:22 | disposition home or self-care (01) ==
PROVIDERS: PCP Family Medicine; Visit Provider Student in an Organized Health Care Education/Training Program
PROC: (CPT 27447; principal; 2022-09-12 07:30)
DX: M17.11 Unilateral primary osteoarthritis, right knee (principal); E78.5 Hyperlipidemia, unspecified; I10 Essential (primary) hypertension; D69.6 Thrombocytopenia, unspecified
CPT/HCPCS: 20985; 27447; C1776; 76942; 97162; 97530; J0690; J1100; J2250; J2371; J2405

== ENCOUNTER 2022-09-25 11:04 | Outpatient (CLI) | payer MEDICARE, BC, SELFPAY ==
--- NOTE | 2022-09-25 10:45 | DI.RAD_ITS ---
Exam(s) XR STANDING ALIGNMENT XR KNEE RT 1V EXAM: XR STANDING ALIGNMENT and XR knee RT 1 V CLINICAL HISTORY: 1ST POST OP R TKA. TECHNIQUE: 2D digital imaging was performed. Five images were obtained. COMPARISON: CR XR STANDING ALIGNMENT from 09/04/2022 FINDINGS: BONES: The hips are well maintained. Since the prior examination, the patient has undergone a right total knee replacement. The orthopedic hardware is in good position. No suspicious lucencies are se en in or around the orthopedic hardware. There is mild narrowing of the femoral tibial joints in the left knee. The ankles are well maintained.There is no significant leg length discrepancy. SOFT TISSUE: Normal. IMPRESSION: Stable right total knee replacement. DATA REPOSITORY: RADIATION DOSE DELIVERED:
== END 2022-09-25 11:05 | disposition home or self-care (01) ==
LOC: DIORS 11:05
PROVIDERS: PCP Family Medicine; Referring Provider Family Medicine; Visit Provider Physician Assistant
DX: Z96.651 Presence of right artificial knee joint (principal); Z47.1 Aftercare following joint replacement surgery
CPT/HCPCS: 73560; 77073

== ENCOUNTER → 2022-10-12 14:18 | Outpatient (BNVA) | payer MEDICARE, BC, SELFPAY | PROVIDERS: PCP Family Medicine; Referring Provider Family Medicine | DX: Z47.1 Aftercare following joint replacement surgery (principal); Z96.651 Presence of right artificial knee joint ==

== ENCOUNTER 2022-10-23 14:16 | Outpatient (CLI) | payer MEDICARE, BC, SELFPAY ==
--- NOTE | 2022-10-23 14:00 | DI.RAD_ITS ---
Exam(s) XR KNEE RT 3V AP,LAT,SHRUTHI EXAM: XR KNEE RT 3V AP,LAT,SHRUTHI CLINICAL HISTORY: eval R knee stiffness and pain. TECHNIQUE: 2D digital imaging was performed. Three images were obtained. Merchant's, AP and lateral views were obtained. COMPARISON: CR XR KNEE LT 3V AP,LAT,SHRUTHI from 01/02/2022 CR XR KNEE RT 1V from 09/25/2022 FINDINGS: BONES: There are stable post operative changes present. No fracture or dislocation. JOINTS: The orthopedic hardware is in good position. No evidence of hardware loosening. SOFT TISSUE: Normal. IMPRESSION: Stable postoperative changes. DATA REPOSITORY: RADIATION DOSE DELIVERED:
== END 2022-10-23 14:17 | disposition home or self-care (01) ==
LOC: DIORS 14:16
PROVIDERS: PCP Family Medicine; Referring Provider Family Medicine; Visit Provider Student in an Organized Health Care Education/Training Program
DX: T84.84XA Pain due to internal orthopedic prosthetic devices, implants and grafts, initial encounter (principal); Z47.1 Aftercare following joint replacement surgery; T81.31XA Disruption of external operation (surgical) wound, not elsewhere classified, initial encounter; M25.661 Stiffness of right knee, not elsewhere classified; Z96.651 Presence of right artificial knee joint
CPT/HCPCS: 73562

== ENCOUNTER 2022-10-31 11:46 | Day surgery (SDC) | payer MEDICARE, BC, SELFPAY ==
[2022-10-31 11:53] VITALS: BP 107/74; PULSE 94; RESP 20; TEMP 36.4; O2SAT 98
[2022-10-31] MEDS: Acetaminophen 500 MG TAB 1000 MG PO (12:11)
[2022-10-31] MEDS: Celecoxib 200 MG CAP 400 MG PO (12:12)
[2022-10-31] MEDS: Lactated Ringers 1,000 ML 80 ML IV (12:20)
--- NOTE | 2022-10-31 12:54 | PDOC.DSDIS_ITS ---
Date of service: 10/31/22 Time of Service: 12:54 Discharge Plan Disposition Patient Disposition: Home Condition: Good Discharge Details Reason For Visit: R knee manipulation Attending Provider: Jose Guadalupe Puentes Primary Care Provider: Hilario Mai Home Meds and New Rx's Prescriptions: New oxycodone 5 mg tablet 5 mg PO Q8H MDD 15mg PRN (Reason: pain) Qty: 10 0RF Continued oxycodone 5 mg tablet 5 mg PO Q8H MDD 3 tabs PRN (Reason: severe postoperative pain) Qty: 15 0RF Rx Instructions: Take one tablet up to every 8 hours as needed for severe postoperative pain meloxicam 7.5 mg tablet 7.5 mg PO BID Qty: 60 0RF Rx Instructions: Take one tablet every 12 hours as needed for severe postoperative pain lovastatin 40 mg tablet See Rx Instructions .ROUTE .COMPLEX Qty: 90 3RF Dose Instruction: TAKE ONE TABLET BY MOUTH EVERY DAY Rx Instructions: TAKE ONE TABLET BY MOUTH EVERY DAY allopurinol 300 mg tablet 300 mg PO HS Rx Instructions: prevent gout lisinopril-hydrochlorothiazide 10-12.5 mg tablet 1 tab PO HS omeprazole magnesium 20 mg capsule,delayed release(DR/EC) 20 mg PO HS Rx Instructions: due to presence of Pack's esophagus and gastroesophageal reflux acetaminophen 500 mg tablet 1,000 mg PO Q8H PRN Qty: 90 0RF Rx Instructions: Take two tablets up to every 8 hours as needed for pain docusate sodium [Colace] 100 mg capsule 100 mg PO BID Qty: 30 0RF Discharge Instructions Additional Instructions: Knee Manipulation Discharge Instructions Activity: You should begin moving as soon as possible. You may work on flexion but also equally maintain extension. You may bear weight as tolerated, using crutches only for support/comfort. You should apply ice to help with swelling and elevate when possible (especially in the first few days). Dressings: The knee dressing may come down after 48 hours. You may shower and get the wound wet at that time. You should keep the wounds covered with a bandaid until follow-up. Medications: - Rarely does this require any stronger pain medications. - Recommend to take up to 1000mg of Acetaminophen (Tylenol) and 600mg of Ibuprofen (Advil) every 8 hours as needed. These larger strength tablets were called in but you also may use [id number]. Follow-up: 7-10 days Referrals: Jose Guadalupe Puentes MD [ [facility] STAFF PHYSICIAN] - Equipment/Supplies: Partial Weight Bearing Crutches Activity:: Activity as Tolerated Remove Dressings/Wound Care:: 48 hours Shower/Bathe:: 48 hours Diet:: As Tolerated Discharge Orders Discharge Orders: Discharge Order (Routine); Ordered 10/31/22 Ordered By: Santo Herr DS: Diagnosis Discharge Diagnosis (1) Arthrofibrosis of total knee arthroplasty: Status: Acute
--- NOTE | 2022-10-31 13:07 | ANES.PREOP_ITS ---
General Info Date of Service Date Performed: 10/31/22 Height: 5 ft 11 in Weight: 91.6 kg Body Mass Index (BMI): 28.1 Surgical Procedure: Operation Date: 10/31/22 15:10 Proposed Procedure Side Surgeon p Knee Manipulation of Knee Right Jose Guadalupe Puentes MD s I and D of superficial wound dehiscence with closure of right knee, aspiration Right Jose Guadalupe Puentes MD Meds Allergies and Home Medications Allergies Allergy/AdvReac Type Severity Reaction Status Date / Time Beta-Blockers AdvReac Intermediate Drowsiness Verified 10/31/22 12:07 (Beta-Adrenergic Bloc 1978 simvastatin AdvReac Intermediate tired Verified 10/31/22 12:07 Home Medication Medication Instructions Recorded lovastatin 40 mg tablet See Rx Instructions .Route 08/14/22 .COMPLEX #90 tabs allopurinol 300 mg tablet 300 mg PO HS 09/11/22 lisinopril 10 1 tab PO HS 09/11/22 mg-hydrochlorothiazide 12.5 mg tablet omeprazole magnesium 20 mg 20 mg PO HS 09/11/22 capsule,delayed release acetaminophen 500 mg tablet 1,000 mg PO Q8H PRN pain #90 tabs 09/12/22 docusate sodium 100 mg capsule 100 mg PO BID #30 caps 09/12/22 (Colace) meloxicam 7.5 mg tablet 7.5 mg PO BID #60 tabs 10/12/22 oxycodone 5 mg tablet 5 mg PO Q8H PRN severe 10/12/22 postoperative pain #15 tabs Current Visit Medications: Current Medications Generic Name Dose Route Start Last Admin Trade Name Francisco Javierq PRN Reason Stop Dose Admin Acetaminophen 1,000 mg 10/31/22 06:00 10/31/22 12:11 Acetaminophen 500 Mg Tab PO 11/30/22 05:59 1,000 mg PREOP LEA Administration Acetaminophen 650 mg 10/31/22 12:52 Acetaminophen 325 Mg Tab PO 11/30/22 12:51 Q4H PRN PRN Celecoxib 400 mg 10/31/22 06:00 10/31/22 12:12 Celecoxib 200 Mg Cap PO 11/30/22 05:59 400 mg PREOP LEA Administration Ringer's Solution 1,000 mls @ 80 mls/hr 10/31/22 06:00 10/31/22 12:20 IV 11/29/22 23:59 80 mls/hr INFUSION LEA Administration IV Miscellaneous Supplies 1 each 10/31/22 06:00 Iv Access IV 11/29/22 23:59 DIRECTED LEA Sodium Chloride 0 ml 10/31/22 06:00 Normal Saline Flush 10 Ml Syr IV 11/29/22 23:59 PRN PRN Sodium Chloride 0 ml 10/31/22 06:00 Normal Saline 10 Ml Vial IJ 11/29/22 23:59 DIRECTED PRN Sterile Water 0 ml 10/31/22 06:00 Water,Injection,Sterile 10 Ml Vial IJ 11/29/22 23:59 DIRECTED PRN PFSH Active Problems Active Problems: Problem Status Onset Code Arthrofibrosis of total knee arthroplasty T84.82XA Surgical wound dehiscence T81.31XA Painful total knee replacement, right T84.84XA, Z96.651 History of right knee joint replacement 09/12/22 Z96.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 Acquired thrombocytopenia 01/14/01 D69.6 Cirrhosis K74.60 Family history of colon cancer in mother 08/07/16 Z80.0 Gout 04/02/85 M10.9 Hyperlipidemia 10/31/08 E78.5 Hypertension 04/03/77 I10 Pain, joint, multiple sites 06/22/11 M25.50 Malignant melanoma of skin of trunk 10/31/05 C43.59 Overweight 06/22/11 E66.3 Proteinuria 06/29/98 R80.9 Varicose veins of right lower extremity 10/23/14 I83.91 Chronic hepatitis 04/02/04 K73.9 GERD (gastroesophageal reflux disease) K21.9 Trigger finger M65.30 History of hepatitis C Z86.19 Cataract H26.9 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 Swollen R knee M25.461 Degenerative joint disease of left knee M17.12 Medical History Medical History Epiretinal membrane (ERM) of right eye 08/2021 Dr Bentley[facility] Surgical History Surgical History Colonoscopy - IV Sedation (09/01/16) Colonoscopy - MAC (07/26/09) EGD - MAC (01/06/15) w/bx, antral mucosa w intestinal metaplasia and severe focally erosive reacitve goatropathy, H/O eye surgery 05/2022 right Hx of cataract removal with insertion of prosthetic lens 2020 bilateral LIVER BIOPSY (01/05/05) [facility] [place] S/P left cataract extraction (09/14/20) S/P right cataract extraction (09/01/20) Tobacco Smoking/Tobacco Use Status: Former Tobacco Use Alcohol Alcohol Intake: current Alcohol intake frequency: 0-2 drinks per day Alcohol type: wine Substance Use Substance use: Never Substance use type: does not use Vital Signs and Lab Results Vital Signs Most Recent Vital Signs in EMR: Most Recent Vital Signs Temp Pulse Resp BP Pulse Ox 36.4 C L 94 H 20 107/74 98 10/31/22 11:53 10/31/22 11:53 10/31/22 11:53 10/31/22 11:53 10/31/22 11:53 Lab Results Blood Type / Crossmatch: No Data to Display Complete Blood Count: No Data to Display Complete Metabolic Panel: No Data to Display Liver Function Panel: No Data to Display Coagulation Panel: No Data to Display Cardiac Panel: No Data to Display Arterial Blood Gas: No Data to Display Venous Blood Gas: No Data to Display Pancreas Panel: No Data to Display Thyroid Panel: No Data to Display Infectious Disease: No Data to Display Blood Cultures: No Data to Display Toxicology Panel: No Data to Display Imaging and Studies Imaging and Studies Study information below may be from another EMR and interpreted by another provider. Please see original notes in EMR for more complete details. EKG Summary: 08/22: sinus. Anesthesia Assessment and Plan Anesthesia History Personal History: No History of Anesthesia Complications Family History: No Family History of Anesthesia Complications Exercise Tolerance Exercise Tolerance: Metabolic Equivalents<4 Pertinent Negatives Pertinent Negatives: No Symptoms of GERD Cardiac & Pulmonary Exam Cardiac Exam: Normal S1/S2 Heart Sounds Pulmonary Exam: Clear Bilateral Breath Sounds Implantable Cardiac Device Does patient have a Pacemaker or an ICD?: No Airway Exam Known Difficult Airway: No Mallampati Class: 2 Mouth Opening: Normal (> 3cm) Thyromental Distance: Greater than 3 cm Neck Range of Motion: Full ROM Neck Circumference: Normal Teeth Condition: Normal Dentition ASA Classification ASA Score: ASA 2 Emergency Case?: No NPO Status NPO Status: NPO Clears >2 hours, Solids >8 hours Anesthesia Plan Resuscitation Status: Full Code Anesthesia Technique: General Anesthesia Airway Planned: Natural Airway Monitors Used: Standard Monitors
[2022-10-31 13:08] VITALS: BMI 28.1
--- NOTE | 2022-10-31 13:27 | W.PREOPHP ---
Assessment and Plan Assessment and plan (1) Surgical wound dehiscence: Status: Acute (2) Arthrofibrosis of total knee arthroplasty: Status: Acute (3) Painful total knee replacement, right: Status: Acute Assessment and plan: Anthony is a 72-year-old who is status post right knee replacement who has had a complication of swelling, hemarthrosis, hematoma, arthrofibrosis and a small open area of his distal wound. Given the constellation of these findings I recommend we proceed with irrigation debridement closure of this small pinhole in the distal aspect of his wound. I would also obtain a aspiration of the knee at the same time although he does not clinically show signs of infection. Given the stiffness which has resulted I also recommend a manipulation. I reviewed this with him. Discussed the risk to include continued stiffness, infection, pain, need for repeat procedures. Despite these risk, he elects to proceed. History of Present Illness History of Present Illness Chief Complaint: Right knee arthrofibrosis with small draining wound Narrative: Anthony is a 72-year-old who is status post right knee replacement. Unfortunately, he is doing well initially, he developed a large hemarthrosis and hematoma about the right knee. This is started to resolve on its own but has been left with significant stiffness along with a very small area that continues to drain some serous fluid. Please see the previous office note for complete detailed history. He is here today for manipulation anesthesia as well as irrigation debridement closure of the right knee wound. Review of Systems All systems reviewed & are unremarkable except as noted in HPI and below PFSH All Active Problems Arthrofibrosis of total knee arthroplasty (Acute) RIGHT S/P Manipulation under Anesthesia: 10/31/2022 Surgical wound dehiscence (Acute) Painful total knee replacement, right (Acute) History of right knee joint replacement (Acute 09/12/22) Pack esophagus (Acute) Acquired ichthyosis (Acute 03/11/12) Acquired thrombocytopenia (Acute 01/14/01) HEP C (TREATED SUCCESSFULLY) AND CIRRHOSIS Cirrhosis (Acute) Hep C 2003, bx [facility] [place] 12/2004, cleared Hep C virus by 01/2006; hep C +/- EtOH; mild varicosities 12/2014 EGD Family history of colon cancer in mother (Acute 08/07/16) Mother had surgery age 72, but lived to [address] [place] [address] (Acute 04/02/85) ALLOPURINOL , RESUMED Hyperlipidemia (Acute 10/31/08) goal LDL <130; RX begun 10/2008 Hypertension (Acute 04/03/77) h/o PHEO W/U 1977 neg; high bp at colonoscopy 2009 Pain, joint, multiple sites (Acute 06/22/11) ?early djd Malignant melanoma of skin of trunk (Acute 10/31/05) H/O ON TRUNK back 2005, [place] Overweight (Acute 06/22/11) GOAL 190LBS Proteinuria (Acute 06/29/98) Varicose veins of right lower extremity (Acute 10/23/14) Chronic hepatitis (Chronic 04/02/04) GERD (gastroesophageal reflux disease) (Chronic) Trigger finger (Acute) History of hepatitis C (Chronic) Treated with interferon 2004, presumably cured Cataract (Chronic) Cystoid macular edema (Acute) Swollen R knee (Acute) Degenerative joint disease of left knee (Acute) Depo-Medrol injection: 08/21/22 01/02/22 Medical History Epiretinal membrane (ERM) of right eye 08/2021 Dr Bentley, [facility] Surgical History Colonoscopy - IV Sedation (09/01/16) Colonoscopy - MAC (07/26/09) EGD - MAC (01/06/15) w/bx, antral mucosa w intestinal metaplasia and severe focally erosive reacitve goatropathy, H/O eye surgery 05/2022 right Hx of cataract removal with insertion of prosthetic lens 2020 bilateral LIVER BIOPSY (01/05/05) [facility] [place] CIR[place]OSIS S/P left cataract extraction (09/14/20) S/P right cataract extraction (09/01/20) Family History Mother , cancer issues at age 92. Colon cancer 72 Father , [place] at [place] 72. No problems noted. Brother Age: 67 Alcohol abuse Essential hypertension Social History Smoking/Tobacco Use Status: Former Tobacco Use Quit Date: 04/02/84 Smoking risk assessment performed?: Yes Alcohol Intake: current Alcohol Intake frequency: 0-2 drinks per day Alcohol type: wine Drug use: Never Substance use type: does not use Household members: none Housing: house Number of Children: 0 Communication Needs: Corrective Lenses current occupation: retired from [employer] Current gender identity: male What type of physical activity do you participate in: walking Duration: 30-45 minutes/day Frequency: daily Seatbelt use: always Drive intox or ride w/intox petroleum transport driver: No Working smoke detector in home: Yes Fire extinguisher in home: Yes Carbon monox detector in home: Yes Do you feel safe at home: Yes Additional Social history: Live alone Meds Allergies and Home Medications Allergies Allergy/AdvReac Type Severity Reaction Status Date / Time Beta-Blockers AdvReac Intermediate Drowsiness Verified 10/31/22 12:07 (Beta-Adrenergic Bloc 1978 simvastatin AdvReac Intermediate tired Verified 10/31/22 12:07 Home Medications Medication Instructions Recorded Confirmed Type lovastatin 40 mg tablet See Rx Instructions .Route 08/14/22 10/31/22 Rx .COMPLEX #90 tabs allopurinol 300 mg tablet 300 mg PO HS 09/11/22 10/31/22 History lisinopril 10 1 tab PO HS 09/11/22 10/31/22 History mg-hydrochlorothiazide 12.5 mg tablet omeprazole magnesium 20 mg 20 mg PO HS 09/11/22 10/31/22 History capsule,delayed release acetaminophen 500 mg tablet 1,000 mg PO Q8H PRN pain #90 tabs 09/12/22 10/31/22 Rx docusate sodium 100 mg capsule 100 mg PO BID #30 caps 09/12/22 10/30/22 Rx (Colace) meloxicam 7.5 mg tablet 7.5 mg PO BID #60 tabs 10/12/22 10/31/22 Rx oxycodone 5 mg tablet 5 mg PO Q8H PRN severe 10/12/22 10/31/22 Rx postoperative pain #15 tabs oxycodone 5 mg tablet 5 mg PO Q8H PRN pain #10 tabs 10/31/22 Rx Exam Resp Effort & Inspection: normal respiratory effort Auscultation: clear to auscultation bilaterally Cardio Rate: regular rate Rhythm: regular rhythm Results Last Vital Signs Temp 36.4 C L 10/31/22 11:53 Pulse 94 H 10/31/22 11:53 Resp 20 10/31/22 11:53 BP 107/74 10/31/22 11:53 Pulse Ox 98 10/31/22 11:53
[2022-10-31] MEDS: Bupivacaine 0.25% Pres-Free 30 ML VIAL (13:50)
[2022-10-31 14:15] VITALS: BP 95/60; PULSE 85; RESP 20; TEMP 36; O2SAT 97
--- NOTE | 2022-10-31 14:31 | W.ANESPOSTOP ---
Postoperative Evaluation Date, Time and Location Date Performed: 10/31/22 Time Performed: 14:31 Patient Location: Day Surgery Unit Vital Signs Most Recent Imported Vital Signs: Most Recent Vital Signs Temp Pulse Resp BP Pulse Ox 36.4 C L 94 H 20 107/74 98 10/31/22 11:53 10/31/22 11:53 10/31/22 11:53 10/31/22 11:53 10/31/22 11:53 Pain Score Most Recent Pain Score: Most Recent Pain Score Pain Level 2 10/31/22 11:53 Assessment Mental Status: Awake (Alert & Oriented to Patient Baseline) Airway and Respiratory Function: Patent airway with normal (patient baseline) respiratory exam Cardiovascular Function: Hemodynamically Stable Hydration Status: Adequately Hydrated Nausea & Vomiting: No Nausea or Vomiting Pain: Pt. Denies Any Pain Peripheral Nerve Block: Patient did not receive a nerve block
[2022-10-31 14:45] VITALS: BP 113/95; PULSE 61; RESP 17; TEMP 36.5; O2SAT 98
[2022-10-31] MEDS: oxyCODONE 5 MG TAB PO (14:53)
--- NOTE | 2022-10-31 15:00 | ROE_ITS ---
Date of service: 10/31/22 Time of Service: 14:45 Operative Note Operative Note DATE OF PROCEDURE: 10/31/22 PRE-OP DIAGNOSIS: Right Knee Arthrofibrosis s/p Replacement Delayed Healing, Right Knee Wound POST-OP DIAGNOSIS: same PROCEDURE: Right Knee Manipulation Under Anesthesia Right Surgical Wound I&D and Primary Closure SURGEON: Jose Guadalupe Puentes ANESTHESIA TYPE: General:No Airway Refer to Anesthesia Record ESTIMATED BLOOD LOSS: 0 PATHOLOGY: other (A fluid sample from the knee was sent to the lab for cell count and culture) TOURNIQUET TIME: 0 COMPLICATIONS: None Patient was transported to: PACU Patient's condition: stable Indications: Anthony is a 72-year-old male who is s/p knee replacement. Despite diligent wo rk with physical therapy there has been continued stiffness, which unfortunately became more prominent [place] the [place] after his knee replacement which resulted in significant swelling and bleeding around and about the knee. To assist with mobility, I offered a manipulation under anesthesia along with debridement and closure of a nonhealing small wound of the distal aspect of the incision. I discussed the risks of the procedure to include bleeding, pain, recurrent stiffness, fracture. Despite these risks, Anthony elects to proceed. Findings: Preoperative flexion = 80 Postoperative flexion = 120 Preoperative extension = 15 Postoperative extension = 3 There was significant fibrinous material within the 3 mm opening of the distal aspect of the wound. This was debrided sharply. The skin edges were incised. The wound was closed with nylon. Procedure Description: The patient was greeted in the preoperative holding area. Identity was confirmed and the correct side was identified and marked. The consent was reviewed the patient and signed. History and physical was updated. Anthony was taken back to the operating room. The right side was identified as the correct side. A timeout was performed for safe surgery. A general anesthetic was administered. The knee was then prepped with ChloraPrep. The small, 3 to 4 mm defect of the distal aspect the wound was then sharply debrided of its skin edges. Fibrinous material within the base was debrided sharply for bleeding edges. There is no undermining and no expressible fluid. This was then cleansed once again with Betadine and irrigated with saline. This was closed with two #3-0 nylon sutures. Then, I aspirated the knee from a superolateral approach obtaining only 3 cc of slightly cloudy orange fluid. This was sent to the lab for cell count and culture. An intra-articular injection of 10 cc of 0.5% bupivacaine was administered. Once a muscle relaxant was fully on board, manipulation was performed. Pre- manipulation range of motion was noted. A gentle manipulation was performed first into flexion using a very small lever arm and adding gentle and progressive pressure to the tibia. There is audible and palpable crepitus with improvement in range of motion. This was cycled and repeated multiple times. The leg was then brought into extension and gentle anterior posterior pressure was applied with a supported hand behind the proximal tibia and knee. This was brought back into flexion was once again manipulated with gentle and progressive pressure. Final range of motion numbers were recorded. A Band-Aid was applied to the injection site. Anthony was awakened from anesthesia and taken to the PACU in stable condition.
[2022-10-31 15:22] LABS: Clarity Cloudy; Nucleated Cells 12216 uL (0)
[2022-10-31 15:23] LABS: Mononuclear Cells 13 %; Polynuclear Cells 87 %
== END 2022-11-07 16:30 | disposition home or self-care (01) ==
PROVIDERS: PCP Family Medicine; Visit Provider Student in an Organized Health Care Education/Training Program
PROC: (CPT 27570; principal; 2022-10-31 15:00)
PROC: (CPT 12020; 2022-10-31 15:00)
DX: T81.31XA Disruption of external operation (surgical) wound, not elsewhere classified, initial encounter (principal); T84.82XA Fibrosis due to internal orthopedic prosthetic devices, implants and grafts, initial encounter; T84.84XA Pain due to internal orthopedic prosthetic devices, implants and grafts, initial encounter; Z96.651 Presence of right artificial knee joint
CPT/HCPCS: 12020; 27570; 87077; 87070; 87186; 87205; 89051; J1100; J1885; J2001; J2250; J2405; J2704

== ENCOUNTER 2022-11-05 09:00 | Outpatient (REF) | payer MEDICARE, BC, SELFPAY ==
[2022-11-05 10:38] LABS: Clarity Cloudy; Nucleated Cells 15500 uL (0)
[2022-11-05 10:43] LABS: Mononuclear Cells 11 %; Polynuclear Cells 89 %
== END 2022-11-05 09:01 | disposition home or self-care (01) ==
LOC: LBN 09:00
PROVIDERS: PCP Family Medicine; Visit Provider Student in an Organized Health Care Education/Training Program
DX: T84.84XA Pain due to internal orthopedic prosthetic devices, implants and grafts, initial encounter (principal); Z96.651 Presence of right artificial knee joint
CPT/HCPCS: 87070; 87186; 87205; 89051

== ENCOUNTER 2022-11-07 11:28 | Inpatient (IN) | payer MEDICARE, BC, SELFPAY ==
[2022-11-07] VITALS (10 sets, daily range): BP systolic 87–112; BP diastolic 49–71; PULSE 76–99; RESP 14–20; TEMP 36.2–36.5; O2SAT 92–98; BMI 28.1
--- NOTE | 2022-11-07 11:13 | W.ANESPRE ---
General Info Date of Service Date Performed: 11/07/22 Height: 5 ft 11 in Weight: 91.626 kg Body Mass Index (BMI): 28.1 Surgical Procedure: Operation Date: 11/07/22 15:10 Proposed Procedure Side Surgeon p Knee Poly Exchange,Open Synovectomy, CR/FB Poly (8x8, 8x10mm) Right Jose Guadalupe Puentes MD s I&D of Knee Right Jose Guadalupe Puentes MD Meds Allergies and Home Medications Allergies Allergy/AdvReac Type Severity Reaction Status Date / Time Beta-Blockers AdvReac Intermediate Drowsiness Verified 11/07/22 11:41 (Beta-Adrenergic Bloc 1978 simvastatin AdvReac Intermediate tired Verified 11/07/22 11:41 Home Medication Medication Instructions Recorded allopurinol 300 mg tablet 300 mg PO HS 09/11/22 lisinopril 10 1 tab PO HS 09/11/22 mg-hydrochlorothiazide 12.5 mg tablet omeprazole magnesium 20 mg 20 mg PO HS 09/11/22 capsule,delayed release acetaminophen 500 mg tablet 1,000 mg PO Q8H PRN pain #90 tabs 09/12/22 meloxicam 7.5 mg tablet 7.5 mg PO BID #60 tabs 10/12/22 oxycodone 5 mg tablet 5 mg PO Q8H PRN severe 10/12/22 postoperative pain #15 tabs oxycodone 5 mg tablet 5 mg PO Q8H PRN pain #10 tabs 10/31/22 docusate sodium 100 mg capsule 100 mg PO BID PRN 11/06/22 (Colace) lovastatin 40 mg tablet 40 mg PO DAILY 11/07/22 Current Visit Medications: Current Medications Generic Name Dose Route Start Last Admin Trade Name Freq PRN Reason Stop Dose Admin Acetaminophen 1,000 mg 11/07/22 06:00 Acetaminophen 500 Mg Tab PO 11/07/22 18:00 PREOP LEA Celecoxib 400 mg 11/07/22 06:00 Celecoxib 200 Mg Cap PO 11/07/22 18:00 PREOP LEA Gabapentin 300 mg 11/07/22 06:00 Gabapentin 300 Mg Cap PO 11/07/22 18:00 PREOP [facility] Tranexamic Acid 1,000 mg/ 60 mls @ 360 mls/hr 11/07/22 06:00 Sodium Chloride IVPB 08/08/23 18:00 PREOP LEA Tranexamic Acid 1,000 mg/ 60 mls @ 360 mls/hr 11/07/22 06:00 Sodium Chloride IVPB 11/07/22 18:00 DIRECTED LEA Ringer's Solution 1,000 mls @ 80 mls/hr 11/07/22 06:00 IV 12/06/22 23:59 INFUSION LEA Cefazolin Sodium/Dextrose 2 gm in 50 mls @ 100 mls/hr 11/07/22 06:00 Ancef Duplex IVPB 11/07/22 16:00 PREOP LEA IV Miscellaneous Supplies 1 each 11/07/22 06:00 Iv Access IV 12/06/22 23:59 DIRECTED LEA Sodium Chloride 0 ml 11/07/22 06:00 Normal Saline Flush 10 Ml Syr IV 12/06/22 23:59 PRN PRN Sodium Chloride 0 ml 11/07/22 06:00 Normal Saline 10 Ml Vial IJ 12/06/22 23:59 DIRECTED PRN Sterile Water 0 ml 11/07/22 06:00 Water,Injection,Sterile 10 Ml Vial IJ 12/06/22 23:59 DIRECTED PRN PFSH Active Problems Active Problems: Problem Status Onset Code Infection of prosthetic right knee joint T84.53XA Arthrofibrosis of total knee arthroplasty T84.82XA Surgical wound dehiscence T81.31XA Painful total knee replacement, right T84.84XA, Z96.651 History of right knee joint replacement 09/12/22 Z96.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 Acquired thrombocytopenia 01/14/01 D69.6 Cirrhosis K74.60 Family history of colon cancer in mother 08/07/16 Z80.0 Gout 04/02/85 M10.9 Hyperlipidemia 10/31/08 E78.5 Hypertension 04/03/77 I10 Pain, joint, multiple sites 06/22/11 M25.50 Malignant melanoma of skin of trunk 10/31/05 C43.59 Overweight 06/22/11 E66.3 Proteinuria 06/29/98 R80.9 Varicose veins of right lower extremity 10/23/14 I83.91 Chronic hepatitis 04/02/04 K73.9 GERD (gastroesophageal reflux disease) K21.9 Trigger finger M65.30 History of hepatitis C Z86.19 Cataract H26.9 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 Swollen R knee M25.461 Degenerative joint disease of left knee M17.12 Medical History Medical History Epiretinal membrane (ERM) of right eye 08/2021 Dr Bentley, [facility] Surgical History Surgical History Colonoscopy - IV Sedation (09/01/16) Colonoscopy - MAC (07/26/09) EGD - MAC (01/06/15) w/bx, antral mucosa w intestinal metaplasia and severe focally erosive reacitve goatropathy, H/O eye surgery 05/2022 right Hx of cataract removal with insertion of prosthetic lens 2020 bilateral [place]IVER [place]OPSY [place]01/05/05[place] [facility] [place]P left cataract extraction (09/14/20) S/P right cataract extraction (09/01/20) Tobacco Smoking/Tobacco Use Status: Former Tobacco Use Alcohol Alcohol Intake: current Alcohol intake frequency: 0-2 drinks per day Alcohol type: wine Substance Use Substance use: Never Substance use type: does not use Details: Hasn't been drinking wine lately Vital Signs and Lab Results Vital Signs Comment Vital Signs Comment:: Temp Pulse Resp BP Pulse Ox 36.4 C L 99 H 20 111/71 98 11/07/22 11:44 11/07/22 11:44 11/07/22 11:44 11/07/22 11:44 11/07/22 11:44 Lab Results Blood Type / Crossmatch: No Data to Display Complete Blood Count: No Data to Display Complete Metabolic Panel: No Data to Display Liver Function Panel: No Data to Display Coagulation Panel: No Data to Display Cardiac Panel: No Data to Display Arterial Blood Gas: No Data to Display Venous Blood Gas: No Data to Display Pancreas Panel: No Data to Display Thyroid Panel: No Data to Display Infectious Disease: No Data to Display Blood Cultures: No Data to Display Toxicology Panel: No Data to Display Imaging and Studies Imaging and Studies Study information below may be from another EMR and interpreted by another provider. Please see original notes in EMR for more complete details. EKG Summary: 08/22: sinus. Anesthesia Assessment and Plan Anesthesia History Personal History: No History of Anesthesia Complications Family History: No Family History of Anesthesia Complications Exercise Tolerance Exercise Tolerance: Metabolic Equivalents<4 Pertinent Negatives Pertinent Negatives: No Major Cardiovascular Symptoms or Complaints and No Major Pulmonary Symptoms or Complaints Cardiac & Pulmonary Exam Cardiac Exam: Normal S1/S2 Heart Sounds Pulmonary Exam: Clear Bilateral Breath Sounds Implantable Cardiac Device Does patient have a Pacemaker or an ICD?: No Airway Exam Known Difficult Airway: No Mallampati Class: 2 Mouth Opening: Normal (> 3cm) Thyromental Distance: Greater than 3 cm Neck Range of Motion: Full ROM Neck Circumference: Normal Teeth Condition: Normal Dentition ASA Classification ASA Score: ASA 2 Emergency Case?: No NPO Status NPO Status: NPO Clears >2 hours, Solids >8 hours Anesthesia Plan Resuscitation Status: Full Code Anesthesia Technique: Spinal Anesthesia Airway Planned: Natural Airway Pain Management: Surgeon and patient request nerve block Monitors Used: Standard Monitors Preoperative Comments:: 72 yo male for TKA revision. Sig PMHx: barretts/GERD (omeprazole), hep c (treated)/cirrhosis, HTN (lisinopril, HCTZ), former smoker, occ EtOH, Previous Anes: - TKA, spinal, midaz, prop, phenyl, natural airway. - knee manip, prop, succ,
[2022-11-07] MEDS: Lactated Ringers 1,000 ML 80 ML IV (12:15)
[2022-11-07] MEDS: Celecoxib 200 MG CAP 400 MG PO (12:27)
[2022-11-07] MEDS: Gabapentin 300 MG CAP PO ×2 (12:28→21:59)
[2022-11-07] MEDS: Acetaminophen 500 MG TAB 1000 MG PO ×2 (12:28→20:29)
[2022-11-07 13:06] LABS: HCT 36.1 % (40.0-50.0); HGB 12.2 g/dL (13.5-17.5); MCH 32.8 pg (27.0-33.0); MCHC 33.8 % (32.0-36.0); MCV 97 fL (80-95); MPV 10.5 fL (8.0-11.0); Platelet Count 135 10^3/uL (130-400); RBC 3.72 10^6/uL (4.36-5.78); RDW 13.3 % (11.8-14.1); RDW-SD 47.7 fL; WBC 6.27 10^3/uL (4.4-10.8)
--- NOTE | 2022-11-07 13:21 | W.PREOPHP ---
Assessment and Plan Assessment and plan (1) Infection of prosthetic right knee joint: Status: Acute Assessment and plan: Anthony is a 72-year-old who is status post right knee replacement which is unfortunately become infected. Is unclear exactly how the infection occurred but has likely been ongoing release developing since he had an acute episode of swelling and bleeding around the knee right knee about 4 weeks ago. His cell count is increasing although there is minimal fluid. Nevertheless, I do not think it makes any sense to try to wait and determine what exactly is going on. I would recommend an aggressive synovectomy with polyethylene exchange. I also discussed potential of a two-stage exchange revision although I think there is a good chance we can treat this with a implant retention and antibiotics. I discussed this with Anthony. I reviewed the risks to include bleeding, continued infection, pain, stiffness, wound healing difficulties, blood clot, damage to nerves and vessels, need for repeat procedures. Despite these risk, he elects to proceed. History of Present Illness History of Present Illness Chief Complaint: right prosthetic knee infection Narrative: Anthony is a 72-year-old who is status post right knee replacement. Unfortunately developed the acute onset of some swelling and what appeared to be bleeding around the right knee [place] the beach at about 3 or so weeks postop. This seemed to improve slightly but he is left with some stiffness. Manipulation was performed which did help out with some of the passive motion and aspirations performed the same time. Unfortunately, his motion continue to be quite stiff and his pain is persistent although he still is ambulatory. The aspiration turned positive for coag negative staph at day 5 and therefore I recommended that we proceed with infection treatment about the knee. It still unclear the exact source, if from surgery or from a small defect in the distal aspect of the wound. He denies any chest pain or shortness of breath. He denies any fevers or chills. Review of Systems All systems reviewed & are unremarkable except as noted in HPI and below PFSH All Active Problems Infection of prosthetic right knee joint (Acute) Arthrofibrosis of total knee arthroplasty (Acute) RIGHT S/P Manipulation under Anesthesia: 10/31/2022 Surgical wound dehiscence (Acute) Painful total knee replacement, right (Acute) History of right knee joint replacement (Acute 09/12/22) Pack esophagus (Acute) Acquired ichthyosis (Acute 03/11/12) Acquired thrombocytopenia (Acute 01/14/01) HEP C (TREATED SUCCESSFULLY) AND CIRRHOSIS Cirrhosis (Acute) Hep C 2003, bx [facility] [place] 12/2004, cleared Hep C virus by 01/2006; hep C +/- EtOH; mild varicosities 12/2014 EGD Family history of colon cancer in mother (Acute 08/07/16) Mother had surgery age 72, but lived to Gout (Acute 04/02/85) ALLOPURINOL , RESUMED Hyperlipidemia (Acute 10/31/08) goal LDL <130; RX begun 10/2008 Hypertension (Acute 04/03/77) h/o PHEO W/U 1977 neg; high bp at colonoscopy 2009 Pain, joint, multiple sites (Acute 06/22/11) ?early djd Malignant melanoma of skin of trunk (Acute 10/31/05) H/O ON TRUNK back 2005, HAMMER Overweight (Acute 06/22/11) GOAL 190LBS Proteinuria (Acute 06/29/98) Varicose veins of right lower extremity (Acute 10/23/14) Chronic hepatitis (Chronic 04/02/04) GERD (gastroesophageal reflux disease) (Chronic) Trigger finger (Acute) History of hepatitis C (Chronic) Treated with interferon 2004, presumably cured Cataract (Chronic) Cystoid macular edema (Acute) Swollen R knee (Acute) Degenerative joint disease of left knee (Acute) Depo-Medrol injection: 08/21/22 01/02/22 Medical History Epiretinal membrane (ERM) of right eye 08/2021 Dr Bentley[facility] Surgical History Colonoscopy - IV Sedation (09/01/16) Colonoscopy - MAC (07/26/09) EGD - MAC (01/06/15) w/bx, antral mucosa w intestinal metaplasia and severe focally erosive reacitve goatropathy, H/O eye surgery 05/2022 right Hx of cataract removal with insertion of prosthetic lens 2020 bilateral LIVER BIOPSY (01/05/05) [facility] [place], CIRRHOSIS S/P left cataract extraction (09/14/20) S/P right cataract extraction (09/01/20) Family History Mother , cancer issues at age 92. Colon cancer 72 Father , MA at age 72. No problems noted. Brother Age: 67 Alcohol abuse Essential hypertension Social History Smoking/Tobacco Use Status: Former Tobacco Use Quit Date: 04/02/84 Smoking risk assessment performed?: Yes Alcohol Intake: current Alcohol Intake frequency: 0-2 drinks per day Alcohol type: wine Drug use: Never Substance use type: does not use Details: Hasn't been drinking wine lately-no alcohol x 30 days Household members: none Housing: house Number of Children: 0 Communication Needs: Corrective Lenses current occupation: retired from [employer] Current gender identity: male What type of physical activity do you participate in: walking Duration: 30-45 minutes/day Frequency: daily Seatbelt use: always Drive intox or ride w/intox experienced truck driver: No Working smoke detector in home: Yes Fire extinguisher in home: Yes Carbon monox detector in home: Yes Do you feel safe at home: Yes Additional Social history: Live alone Meds Allergies and Home Medications Allergies Allergy/AdvReac Type Severity Reaction Status Date / Time Beta-Blockers AdvReac Intermediate Drowsiness Verified 11/07/22 11:41 (Beta-Adrenergic Bloc 1978 simvastatin AdvReac Intermediate tired Verified 11/07/22 11:41 Home Medications Medication Instructions Recorded Confirmed Type allopurinol 300 mg tablet 300 mg PO HS 09/11/22 11/07/22 History lisinopril 10 1 tab PO HS 09/11/22 11/07/22 History mg-hydrochlorothiazide 12.5 mg tablet omeprazole magnesium 20 mg 20 mg PO HS 09/11/22 11/07/22 History capsule,delayed release acetaminophen 500 mg tablet 1,000 mg PO Q8H PRN pain #90 tabs 09/12/22 11/06/22 Rx meloxicam 7.5 mg tablet 7.5 mg PO BID #60 tabs 10/12/22 11/07/22 Rx oxycodone 5 mg tablet 5 mg PO Q8H PRN severe 10/12/22 11/07/22 Rx postoperative pain #15 tabs oxycodone 5 mg tablet 5 mg PO Q8H PRN pain #10 tabs 10/31/22 11/06/22 Rx docusate sodium 100 mg capsule 100 mg PO BID PRN 11/06/22 11/07/22 History (Colace) lovastatin 40 mg tablet 40 mg PO DAILY 11/07/22 11/07/22 History Exam Resp Effort & Inspection: normal respiratory effort Auscultation: clear to auscultation bilaterally Cardio Rate: regular rate Rhythm: regular rhythm Extrem Other: Evaluation of the right leg shows a nonhealing section of the distal wound from previous surgery. There is hyperemia seen over the lateral aspect of the knee. No overwhelming cellulitis. Bogginess and a mild effusion. Results Labs 11/07/22 13:00 11/07/22 13:00 Labs: Laboratory Results - last 24 hr 11/07/22 13:00 WBC 6.27 RBC 3.72 L Hgb 12.2 L Hct 36.1 L MCV 97 H MCH 32.8 MCHC 33.8 RDW 13.3 Plt Count 135 MPV 10.5 Last Vital Signs Temp 36.5 C 11/07/22 13:00 Pulse 90 11/07/22 13:00 Resp 17 11/07/22 13:00 BP 94/67 L 11/07/22 13:00 Pulse Ox 92 11/07/22 13:00
[2022-11-07] MEDS: ceFAZolin 2 GM/50 ML BAG IVPB ×2 (13:30→20:30)
--- NOTE | 2022-11-07 13:30 | W.ANESNERVE ---
Nerve Block Single Injection Procedure Date and Time Date Performed: 11/07/22 Procedure Start: 14:00 Location Where Procedure Performed Procedure Location: Day Surgery Unit Reason Performed: Postoperative Analgesia Requesting Provider: Jose Guadalupe Puentes Timeout Performed Timeout Performed: Yes Monitoring Used ECG, Blood Pressure, SpO2 and See EMR for corresponding vital signs Sterility Sterility: Hand Hygiene, Surgical Cap, Surgical Mask, Sterile Gloves, Sterile Drape/Sheet and Chlorhexidine Sedation Given During Procedure Sedation Given (Indicate Dose Given): Versed IV Dose:: 1mg Patient Mental Status Patient Mental Status: Awake Nerve Block 1st Nerve Block: Laterality: Right Block Type: Adductor Canal Ultrasound Image Saved?: Yes Needle / Catheter Used: 100mm SonoPlex II Local Anesthetic Bolus (Indicate Dose Given): Lidocaine used for local infiltration of skin, Injected in 3-5ml increments after negative blood aspiration and Bupivacaine 0.25% Dose:: 15ml Additives (Indicate Dose Given): None Ultrasound: Sterile probe cover and gel used Nerve Stimulator: Not Used Paresthesia: None Procedure Tolerated: No Complications and Patient tolerated well Procedure Outcome: Successful Performed By: You Hunt
[2022-11-07 13:59] LABS: ALT 21 U/L (16-63); AST 22 U/L (15-37); Albumin 3.4 g/dL (3.4-5.0); Alkaline Phosphatase 97 U/L (46-116); Anion Gap 7.9 mmol/L (3-11); BUN 35 mg/dL (7-18); Bilirubin, Total 0.7 mg/dL (0.2-1.0); CO2 29.1 mmol/L (21.0-32.0); CREATININE 1.5 mg/dL (0.70-1.30); Calcium 9.2 mg/dL (8.5-10.1); Chloride 100 mmol/L (98-107); Estimated GFR 49.47 (mL/min/1.73m2); Glucose 111 mg/dL (74-106); Potassium 4.3 mmol/L (3.5-5.1); Sodium 137 mmol/L (136-145); Total Protein 7.4 g/dL (6.4-8.2)
--- NOTE | 2022-11-07 15:40 | W.PM.OP ---
Date of service: 11/07/22 Time of Service: 15:15 Operative Note Operative Note DATE OF PROCEDURE: 11/07/22 PRE-OP DIAGNOSIS: Right Prosthetic Knee Infection POST-OP DIAGNOSIS: same PROCEDURE: Irrigation and Debridement, Synovectomy, and Polyethylene Exchange - Right Knee SURGEON: Jose Guadalupe Puentes TIPPLE OPERATOR: Elena Smith ANESTHESIA TYPE: Spinal Refer to Anesthesia Record ESTIMATED BLOOD LOSS: 200 PATHOLOGY: other (Tissue sample sent for culture) TOURNIQUET TIME: 0 COMPLICATIONS: None Patient was transported to: PACU Patient's condition: stable Indications: Anthony is a 72-year-old who developed the acute onset of swelling after working all day about 4 weeks postop. This did improve slightly to begin with but then stagnated. Given the ongoing discomfort and stiffness of the knee an aspiration was performed which did show 15,000 cells but no growth on culture until about day 5. This cell count was repeated which showed an increase in the cell count and given the ongoing symptoms I recommended urgent irrigation debridement with synovectomy. I discussed procedure with Anthony in person and on the phone. I discussed the potential risk to include bleeding, stiffness, pain, continued infection, wound healing difficulties, antibiotic intolerance, GI upset, damage to nerves and vessels, damage to muscle and tendons, blood despite these risk, he elects to proceed. Findings: There is a nonhealing portion of the wound on the inferior segment. This was excised completely. There is no clear defect of the retinaculum or the arthrotomy site. There is thickening clotted blood and blood-tinged synovium seen within the knee. No gross purulence. 2 tissue samples were sent to the lab. Procedure Description: Anthony was greeted in the preoperative holding area where the correct side was identified and marked. The consent was reviewed with the patient and signed. The history and physical was updated. All questions were answered. Preoperative mediacations were administered: Acetaminophen 1000mg, Celebrex 400mg, and Gabapentin 300mg. An adductor canal block was then administered by the anesthesia team in the PACU. Anthony was taken back to the operating room. A spinal anesthestic was administered. The patient was placed into the supine position on the operating room table. Posts were placed for positioning during the procedure. All bony prominences were well padded. Prophylactic antibiotics in the form of Cefazolin were administered. The right leg was then prepped with Chloraprep and draped in a standard fashion with impervious stockinette. A second prep with Chloraprep was performed prior to application of Iodine impregnated skin protection. A timeout to confirm correct identity, side and site, procedure, allergies, anesthesia, and medical concerns was performed. With the knee in some flexion, a midline incision was made overlying the knee utilizing the previous incision. The skin edges were excised and the distal one half of the incision where there was some delayed healing. Full thickness skin flaps were raised once the extensor mechanism was encountered. These were raised medially and laterally. There was fibrous tissue and some necrosis of the fat beneath the area of nonhealing down to the level of the knee capsule and retinaculum. However, there is no clear defect. Any bleeding was controlled with electrocautery. Medial and lateral skin flaps were raised to fully evaluate the extensor mechanism. There is no defect of the extensor mechanism. Previous sutures for closure were palpable and this was utilized as the approach into the knee. A medial parapatellar arthrotomy was then performed. An aggressive synovectomy was performed throughout the entirety of the knee utilizing 2 Allis and 2 Peyton's and then followed by a rongeur. The polyethylene was removed for better visualization posteriorly. Once again an aggressive synovectomy was performed such that there is no remnant synovium remaining. During this process I removed 2 tissue samples for culture, 1 from the front of the knee 1 from the back of the knee. There is no gross purulence. There was an abundant amount of thickened synovium which is blood-tinged and areas of old clot. There is no gross loosening of the components although the bone was soft around some of the edges of the implant. I then thoroughly irrigated the knee with a pulse lavage. This was done directly onto the metal implants for mechanical debridement as well as in the soft tissues. Once this was completed a secondary look was taken throughout the knee and once again any remnant areas of synovium were removed sharply. I then performed a Betadine wash of the knee with surgical for for approximately 3 minutes. This was once again washed out completely. A secondary look was once again taken and there was no remnant synovium and no necrotic or diseased tissue apparent. I then trialed polyethylene sizes, settling on the 8 x 10 mm polyethylene. This was inserted into position without difficulty. A second Betadine wash was then performed utilizing Surgiphor, where this sat for 3 minutes and then was washed out with saline. During this time I injected the soft tissues about the knee with 100 cc mixture of 0.25% ropivacaine, epinephrine, clonidine, and ketorolac. After thoroughly washing out the Betadine, the knee was closed. A second dose of tranexamic acid, 1 g, was then administered. Using #1 Antimicrobial PDS, the arthrotomy and quadriceps split was repaired. This was done in interrupted fashion using [id number] and simple sutures. The tissue quality was excellent and there was great reapproximation of these tissues. Deep tissues were then reapproximated with 0 Vicryl and 2-0 Vicryl. The skin was closed with a running 3-0 Monocryl in a subcuticular fashion. A danica dressing was applied to provide vacuum assistance closure of this wound and promote wound healing in the setting of infection. This was overwrapped with a [id number] ZULMA wrap. A CryoCuff was applied. Anthony was transferred to the hospital stretcher without difficulty an suffering no apparent complication. Anthony has a gaurded prognosis. Aspirin 81mg BID will be used for DVT prophylaxis. His previous culture is growing methicillin susceptible Staph epidermidis, therefore, he will be started on cefazolin 2 g every 8 hours with rifampin 300 mg twice daily for adjunctive therapy against biofilm. He will be monitored and hopefully discharged with home antibiotics. Weightbearing as tolerated.
--- NOTE | 2022-11-07 16:14 | W.ANESPOSTOP ---
Postoperative Evaluation Date, Time and Location Date Performed: 11/07/22 Time Performed: 16:14 Patient Location: PACU Vital Signs Most Recent Imported Vital Signs: Most Recent Vital Signs Temp Pulse Resp BP Pulse Ox 36.2 C L 80 17 97/55 L 94 11/07/22 16:05 11/07/22 16:05 11/07/22 16:05 11/07/22 16:05 11/07/22 16:05 Pain Score Most Recent Pain Score: Most Recent Pain Score Pain Level 0 11/07/22 16:05 Assessment Mental Status: Awake (Alert & Oriented to Patient Baseline) Airway and Respiratory Function: Patent airway with normal (patient baseline) respiratory exam Cardiovascular Function: Hemodynamically Stable Hydration Status: Adequately Hydrated Nausea & Vomiting: No Nausea or Vomiting Pain: Pain is tolerable per patient Peripheral Nerve Block: Regional nerve block not resolved at time of post operative discharge
[2022-11-07] MEDS: oxyCODONE 5 MG TAB PO (20:28)
[2022-11-07] MEDS: Lovastatin 40 MG TAB PO (20:29)
[2022-11-07] MEDS: Celecoxib 200 MG CAP PO (20:29)
[2022-11-07] MEDS: Aspirin E.C. 81 MG TABEC PO (20:30)
[2022-11-07] MEDS: Omeprazole 20 MG CAPCR PO (22:00)
[2022-11-07] MEDS: Allopurinol 300 MG TAB PO (22:00)
[2022-11-08] MEDS: ceFAZolin 2 GM/50 ML BAG IVPB ×3 (04:08→19:46)
[2022-11-08] MEDS: oxyCODONE 5 MG TAB PO (04:18)
[2022-11-08] MEDS: rifAMPin 300 MG CAP PO ×2 (05:52→15:06)
[2022-11-08 07:07] LABS: HCT 31.8 % (40.0-50.0); MCH 33.3 pg (27.0-33.0); MCHC 34.6 % (32.0-36.0); MCV 96 fL (80-95); MPV 10.2 fL (8.0-11.0); Platelet Count 115 10^3/uL (130-400); RDW 13.1 % (11.8-14.1); RDW-SD 46.3 fL; WBC 9.28 10^3/uL (4.4-10.8)
[2022-11-08 07:26] VITALS: BP 107/70; PULSE 71; RESP 17; TEMP 36.5; O2SAT 94
[2022-11-08 07:26] LABS: Anion Gap 8.9 mmol/L (3-11); BUN 38 mg/dL (7-18); C-Reactive Protein 2.58 mg/dL (0.0-0.3); CO2 26.1 mmol/L (21.0-32.0); CREATININE 1.6 mg/dL (0.70-1.30); Calcium 8.8 mg/dL (8.5-10.1); Chloride 102 mmol/L (98-107); Estimated GFR 45.78 (mL/min/1.73m2); Glucose 141 mg/dL (74-106); Potassium 4.9 mmol/L (3.5-5.1); Sodium 137 mmol/L (136-145)
[2022-11-08] MEDS: Aspirin E.C. 81 MG TABEC PO ×2 (07:33→19:45)
[2022-11-08] MEDS: Acetaminophen 500 MG TAB 1000 MG PO ×3 (07:33→19:43)
[2022-11-08] MEDS: Celecoxib 200 MG CAP PO ×2 (07:33→20:30)
[2022-11-08] MEDS: Docusate Sodium 100 MG CAP PO ×2 (09:47→18:33)
--- NOTE | 2022-11-08 10:16 | IN_ITS ---
Date of service: 11/08/22 Time of Service: 09:40 PT Notes Visit Reasons: Infected Right TKA Inpatient Physical Therapy Evaluation Date: 11/08/2022 Referring Doctor: GUILLE Arevalo PT Orders: PT CONSULT: S/P Ortho Surgery Precautions: WBAT on the R LE with AD. Patient Profile/Admitting Diagnosis: Anthony is a 72-year-old male with diagnosis of infection of R prosthetic knee joint and is S/P irrigation and debridement, synovectomy, and polyetheylene exchange on postoperative day 1. He is S/P R TKA on 09/12/2022 and is S/P R knee manipulation on 10/31/2022. PMHX: All Active Problems? Infection of prosthetic right knee joint (Acute) Arthrofibrosis of total knee arthroplasty (Acute) RIGHT S/P Manipulation under Anesthesia: 10/31/2022 Surgical wound dehiscence (Acute) Painful total knee replacement, right (Acute) History of right knee joint replacement (Acute 09/12/22) Pack esophagus (Acute) Acquired ichthyosis (Acute 03/11/12) Acquired thrombocytopenia (Acute 01/14/01) HEP C (TREATED SUCCESSFULLY) AND CIRRHOSIS Cirrhosis (Acute) Hep C 2003, [place]x [facility], cleared Hep C virus by 01/2006; hep C +/- EtOH; mild varicosities 12/2014 EGD Family history of colon cancer in mother (Acute 08/07/16) Mother had surgery age 72, but lived to Gout (Acute 04/02/85) ALLOPURINOL , RESUMED Hyperlipidemia (Acute 10/31/08) goal LDL <130; RX begun 10/2008 Hypertension (Acute 04/03/77) h/o PHEO W/U 1977 neg; high bp at colonoscopy 2009 Pain, joint, multiple sites (Acute 06/22/11) ?early djd Malignant melanoma of skin of trunk (Acute 10/31/05) H/O ON TRUNK back 2005, HAMMER Overweight (Acute 06/22/11) GOAL 190LBS Proteinuria (Acute 06/29/98) Varicose veins of right lower extremity (Acute 10/23/14) Chronic hepatitis (Chronic 04/02/04) GERD (gastroesophageal reflux disease) (Chronic) Trigger finger (Acute) History of hepatitis C (Chronic) Treated with interferon 2004, presumably cured Cataract (Chronic) Cystoid macular edema (Acute) Swollen R knee (Acute) Degenerative joint disease of left knee (Acute) Depo-Medrol injection: 08/21/22 01/02/22 Medical History? Epiretinal membrane (ERM) of right eye 08/2021 Dr Bentley, [facility] Surgical History? Colonoscopy - IV Sedation (09/01/16) Colonoscopy - MAC (07/26/09) EGD - MAC (01/06/15) w/bx, antral mucosa w intestinal metaplasia and severe focally erosive reacitve goatropathy H/O eye surgery 05/2022 right Hx of cataract removal with insertion of prosthetic lens 2020 bilateral LIVER BIOPSY (01/05/05) [facility] [place] S/P left cataract extraction (09/14/20) S/P right cataract extraction (09/01/20) Social History/Home Situation: Patient lives alone in a private home with 2 steps to enter with a rail on the right side going up.? Independent with all aspects of ADLs prior to surgery but required occasional use of SPC since surgery back in August 2022. Equipment Owned/DME: [facility], SPC Subjective: Reports of being mildly off-balanced when first attept at walking in the hallway was made after yesterday's surgery. He then follows this up by saying that he has been like this for quite a while. [place] better at the end of the walk. Reports 1/10 pain in the right knee with weight bearing. Objective: General Observation: Was inside bathroom brushing teeth when PT came in.? ZULMA wraps to right LE.? TEDS to left leg. Mental Status: Alert and oriented x4 Pain: 1/10 pain in the right knee ROM: Right Lower Extremity: Hip flexion WFL. Hip abduction WFL. Knee flexion 15 degrees to 90 degrees.? Knee extension -15 degrees. Ankle dorsiflexion WFL. Ankle plantarflexion WFL. Left Lower Extremity: Hip flexion WFL. Hip abduction WFL. Knee flexion 5 degrees to 118 degrees. Knee extension -5 degrees. Ankle dorsiflexion WFL. Ankle plantarflexion WFL. Strength: Right Lower Extremity: Hip flexors 4/5. Hip abductors 4/5. Knee flexors 3-/5. Knee extensors 3-/5. Ankle dorsiflexors 5/5. Ankle plantarflexors 5/5. Left Lower Extremity:Hip flexors 5/5. Hip abductors 5/5. Knee flexors 3-/5. Knee extensors 3-/5. Ankle dorsiflexors 5/5. Ankle plantarflexors 5/5. Sensation: Intact as to pain and light pressure in bilateral lower extremities Bed Mobility/Transfers: Supine to sit independent Sit to stand independent with SPC Stand to sit independent with SPC Bed to chair independent with SPC in-room ambulation independent with SPC Gait: 200 feet + 200 feet using SPC with step through gait pattern, supervision only. [place] mildly off balance initially but resolved at end of walk. Stairs: 6 x 4-inch steps and 4 X 6-inch steps while holding onto 1 rail, no cane needed. Minimal cues needed for correct technique and for increased flexion in R knee to minimize hip rotation on R. Balance: Static Sitting: Normal Dynamic Sitting: Normal Static Standing: Fair Dynamic Standing: Fair Special Tests: Mobility Limitations Standardized Measure [facility] 6 clicks Basic Mobility Inpatient Short Form: Raw Score: 24? CMS Score: 0% deficit Informed Consent/Education:? Patient was instructed in purpose of PT consult.? Packet containing TKA exercise protocol has been given to patient.? Education and training on initial set of exercises that can be done at home have been completed with patient: Exercises - Supine and seated Quadricep Sets? - 1 x daily - 7 x weekly - 1 sets - 10 reps - 5 hold - Supine Heel Slide? - 1 x daily - 7 x weekly - 1 sets - 10 reps - 5 hold - Supine Ankle Pumps? - 1 x daily - 7 x weekly - 1 sets - 10 reps - 5 hold - Small Range Straight Leg Raise? - 1 x daily - 7 x weekly - 1 sets - 10 reps - 5 hold - Seated May? - 1 x daily - 7 x weekly - 1 sets - 10 reps - 5 hold Assessment: Patient requires the use of a SPC to maximize independence and reduce fall risk. Patient presents with clinical signs and symptoms consistent with current/admitting diagnoses that have resulted to mobility limitations, gait instability, generalized weakness, and impairment of motor control as demonstrated by the following impairment level findings: 1.? Decreased strength to right knee major muscle groups 2.? Impaired standing balance 3.? Limitation of joint range of motion in right knee Impairments are contributing to the following functional limitations: 1.? Inability to safely ambulate without assistive device 2.? Increase completion time for mobility ADL performance 3.? Increased fall risk Patient is assessed as a [id number] moderate complexity complexity based on the following: History: 72-year-old male with impairment level findings, functional limitations, and past medical history as indicated above Examination: Demonstrable impairment in strength, balance, and mobility level with underlying impairments and functional limitations as documented above Presentation: Evolving Decision Makin moderate complexity Goals: 1. Independent gait on level surface with use of SPC for at least 500 feet without report of pain nor dyspnea 2. Independent stair negotiation while holding onto 1 rail for at least 3 steps without report of pain nor dyspnea 3. Independent with home exercise program 4. Good static and dynamic standing balance/tolerance Plan of Care/Treatment Plan: 1-2x/day, 7 days/week x 1 week. Plan of care has been reviewed with the [employer]SEMBLER providing the service under Physical Therapy direction. Initiate Physical Therapy intervention for strengthening, bed mobility, transfers, gait, stairs, balance training, use of assistive device. DISCHARGE RECOMMENDATIONS: [] Home with no services [] [] Home with services [specify] [X] Home with outpatient PT. Home when medically cleared by orthopedic surgeon. Recommend outpatient PT services in order to optimize functional mobility outcomes and facilitate return to independent community ambulation without an assistive device. [] SNF for continued rehabilitation [] [] [facility] [] [] SNF versus LTC based on ability to participate and progress [] TREATMENT CODE/TIME: 77623 x 20 minutes, 77742 x 14 minutes beginning at 9:40 AM. Thank you for the opportunity to participate in the care of this patient. Debbie Pearce PT, DPT, CLT [facility] [place], [place]
--- NOTE | 2022-11-08 10:21 | PDOC.CMIN ---
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 He lives alone and travels to [place] during the winter months. His primary residence is [place] and he receives his primary care locally. Anthony is retired from [employer]. He is active and independent at baseline. Anthony has no local family and shares that most of his relatives are . His brother Cam is his primary support. CURRENT FUNCTIONAL STATUS:: Anthony was lying in bed when CM met with him. He is awake and easily engages in conversation for the purpose of this interview. CM is currently in the process of coordinating terminal block assembler antibiotics at home which is his preference, but he would also be willing to travel to the hospital for infusions if needed. He has identified his brother Cam as being the person who will help him with home infusions. ADVANCE DIRECTIVES:: None, per patient they are incomplete at home. Has patient been provided with info about the portal/API?: Yes Did the patient sign up for the portal?: Yes (Prior to admission) CODE STATUS:: Full Code INSURANCE COVERAGE / FINANCIAL ISSUES:: [place] of [place] CURRENT HOME/COMMUNITY SERVICES/EQUIPMENT:: None PRIMARY CARE PHYSICIAN:: Dr. Mai POTENTIAL DISCHARGE NEEDS:: Coordination of home IV ABX, New SOM RN, outpatient follow up and discharge plan of care. PATIENT/FAMILY EDUCATION NEEDS:: Review discharge instructions, limitations, medications and plan to follow up with community providers. Discuss ask me three and review of home abx. ANTICIPATED BARRIERS TO DISCHARGE:: None identified TRANSPORTATION:: Via private vehicle with brother Cam PLAN:: Anthony is planning to discharge home on [facility] ABX with New O/E SOM RN services. Brothsonu Levy will assist him with home infusions. Anthony will also have outpatient PT and follow up with Ortho and his PCP and discharge plan of care as instructed. CM will continue to follow. PFSH All Active Problems Infection of prosthetic right knee joint (Acute) Arthrofibrosis of total knee arthroplasty (Acute) RIGHT S/P Manipulation under Anesthesia: 10/31/2022 Surgical wound dehiscence (Acute) Painful total knee replacement, right (Acute) History of right knee joint replacement (Acute 09/12/22) Pack esophagus (Acute) Acquired ichthyosis (Acute 03/11/12) Acquired thrombocytopenia (Acute 01/14/01) HEP C (TREATED SUCCESSFULLY) AND CIRRHOSIS Cirrhosis (Acute) [place] 2003[place] [facility] [place] Hep C virus by 01/2006; hep C +/- EtOH; mild varicosities 12/2014 EGD Family history of colon cancer in mother (Acute 08/07/16) Mother had surgery age 72, but lived to Gout (Acute 04/02/85) ALLOPURINOL , RESUMED Hyperlipidemia (Acute 10/31/08) goal LDL <130; RX begun 10/2008 Hypertension (Acute 04/03/77) h/o PHEO W/U 1977 neg; high bp at colonoscopy 2009 Pain, joint, multiple sites (Acute 06/22/11) ?early djd Malignant melanoma of skin of trunk (Acute 10/31/05) H/O ON TRUNK back 2005, HAMMER Overweight (Acute 06/22/11) GOAL 190LBS Proteinuria (Acute 06/29/98) Varicose veins of right lower extremity (Acute 10/23/14) Chronic hepatitis (Chronic 04/02/04) GERD (gastroesophageal reflux disease) (Chronic) Trigger finger (Acute) History of hepatitis C (Chronic) Treated with interferon 2004, presumably cured Cataract (Chronic) Cystoid macular edema (Acute) Swollen R knee (Acute) Degenerative joint disease of left knee (Acute) Depo-Medrol injection: 08/21/22 01/02/22 Medical History Epiretinal membrane (ERM) of right eye 08/2021 Dr Bentley, [facility] Surgical History Colonoscopy - IV Sedation (09/01/16) Colonoscopy - MAC (07/26/09) EGD - MAC (01/06/15) w/bx, antral mucosa w intestinal metaplasia and severe focally erosive reacitve goatropathy, H/O eye surgery 05/2022 right Hx of cataract removal with insertion of prosthetic lens 2020 bilateral LIVER BIOPSY (01/05/05) [facility] [place] S/P left cataract extraction (09/14/20) S/P right cataract extraction (09/01/20) Family History Mother , cancer issues at age 92. Colon cancer 72 Father , [place] at age 72. No problems noted. Brother Age: 67 Alcohol abuse Essential hypertension Social History Smoking/Tobacco Use Status: Former Tobacco Use Quit Date: 04/02/84 Smoking risk assessment performed?: Yes Alcohol Intake: current Alcohol Intake frequency: 0-2 drinks per day Alcohol type: wine Drug use: Never Substance use type: does not use Details: Hasn't been drinking wine lately-no alcohol x 30 days Household members: none Housing: house Number of Children: 0 Communication Needs: Corrective Lenses current occupation: retired from [place] [employer] Current gender identity: male What type of physical activity do you participate in: walking Duration: 30-45 minutes/day Frequency: daily Seatbelt use: always Drive intox or ride w/intox trailer tank truck driver: No Working smoke detector in home: Yes Fire extinguisher in home: Yes Carbon monox detector in home: Yes Do you feel safe at home: Yes Additional Social history: Live alone
[2022-11-08 11:17] VITALS: BP 111/66; PULSE 62; RESP 16; TEMP 36; O2SAT 95
[2022-11-08] MEDS: Normal Saline Flush 10 ML SYR IV ×2 (11:44→22:05)
--- NOTE | 2022-11-08 12:47 | PGE_ITS ---
Date of Service Date of service: 11/08/22 Time of Service: 07:20 Assessment and Plan Assessment and plan (1) Infection of prosthetic right knee joint: Status: Acute Assessment and plan: Anthony is a 72-year-old who has a atypical presentation for an infection of his right knee. However, the evidence was heavy that this was a developing infection. The second culture from Sunday is now growing staph from the plate which appears to be Staph epidermidis. This will be hopefully confirm later today. This does match the first aspirate which would confirm that this is likely a real infection. Once again, I believe this was a secondary contamination from his period of swelling which has not led to a fulminant infection about the knee. Nevertheless, is imperative that we continue to treat aggressively as if it was and is infected. He tolerated procedure well from yesterday. I did discuss this case with infectious ease at [facility] who agrees with the current plan. We will continue with cefazolin 2 g every 8 hours IV. He will start rifampin 300 mg twice daily for glycocalyx prevention and penetration. His CMP showed no concerns for liver dysfunction although this will need to be followed in a weekly basis. His CRP is elevated although not terribly so. His hemoglobin is stable from the surgery yesterday. He is weightbearing as tolerated may work on range of motion is much as he feels ready to do. We will continue with aspirin for DVT prevention. I am working with insurance to set up home antibiotics in the form of ceftriaxone 2 g IV daily. PICC line to be placed today. Subjective Subjective Interval history since last seen: Anthony reports to be doing well. He denies fevers or chills. He has had some mild pain about the right knee which has been well-controlled. He felt a little off when he mobilized earlier yesterday but otherwise no acute complaints. He is unable to move his knee freely in the bed. He did have some difficulty with urination but was able to have a large void earlier in the morning. He denies numbness or tingling. There is no growth from the cultures of the operating room. Exam Narrative Exam Narrative: Sitting up in the hospital bed. No acute distress. Alert and x 3. Evaluation of the right lower extremity shows clean dry and intact dressing. He is able straight leg raise. He has active ankle dorsiflexion and plantarflexion as well as great toe extension and flexion. Sensation intact light touch over the deep and superficial peroneal nerve and tibial nerve. Objective Last Vital Signs Temp 36 C L 11/08/22 11:17 Pulse 62 11/08/22 11:17 Resp 16 11/08/22 11:17 BP 111/66 11/08/22 11:17 Pulse Ox 95 11/08/22 11:17 Laboratory Results - last 24 hr 11/07/22 11/07/22 11/07/22 13:00 13:00 13:00 WBC 6.27 RBC 3.72 L Hgb 12.2 L Hct 36.1 L MCV 97 H MCH 32.8 MCHC 33.8 RDW 13.3 Plt Count 135 MPV 10.5 Sodium 137 Potassium 4.3 Chloride 100 Carbon Dioxide 29.1 Anion Gap 7.9 BUN 35 H Creatinine 1.5 H Est GFR (CKD-EPI 2020) 49.47 Glucose 111 H Calcium 9.2 Total Bilirubin 0.7 AST 22 ALT 21 Alkaline Phosphatase 97 C-Reactive Protein Total Protein 7.4 Albumin 3.4 Patient ABO/Rh O Positive Antibody Screen NEGATIVE 11/08/22 11/08/22 06:59 06:59 WBC 9.28 RBC 3.30 L Hgb 11.0 L Hct 31.8 L MCV 96 H MCH 33.3 H MCHC 34.6 RDW 13.1 Plt Count 115 L MPV 10.2 Sodium 137 Potassium 4.9 Chloride 102 Carbon Dioxide 26.1 Anion Gap 8.9 BUN 38 H Creatinine 1.6 H Est GFR (CKD-EPI 2020) 45.78 Glucose 141 H Calcium 8.8 Total Bilirubin AST ALT Alkaline Phosphatase C-Reactive Protein 2.58 H Total Protein Albumin Patient ABO/Rh Antibody Screen Time Spent with Patient Time Spent with Patient: 25-34 minutes Time was spent: preparing to see the patient(eg.review tests), obtaining and/or reviewing separately otained hiistory, ordering medications,tests, procedures, referring, communicating with other health cardiac care unit nurse, indepentently interpreting results and counseling the patient
--- NOTE | 2022-11-08 13:06 | CHAPLAIN ---
Anthony is here after having a knee replacement, then another procedure and now an infection. He lives next door to his brother and identified his brother as his support. Most of his family has , he said. Anthony thinks he may go home tomorrow and is waiting to hear.
--- NOTE | 2022-11-08 14:50 | DI.RAD_ITS ---
Exam(s) XR LINE PLACEMENT PICC/CVA EXAM: XR LINE PLACEMENT PICC/CVA INDICATION: PICC placement. COMPARISON: CR XR LINE PLACEMENT PICC/CVA from 11/08/2022 TECHNIQUE: 2D digital imaging was performed. Three views. FINDINGS: PICC line has been pulled back which now lies in the lower superior vena cava. No pneumothorax. Bryan gs are clear. Heart size normal. Aorta tortuous. IMPRESSION: Satisfactory positioning of PICC line. DATA REPOSITORY: RADIATION DOSE DELIVERED:
--- NOTE | 2022-11-08 14:50 | DI.RAD_ITS ---
Exam(s) XR LINE PLACEMENT PICC/CVA EXAM: XR LINE PLACEMENT PICC/CVA INDICATION: post PICC placement. COMPARISON: CR ABD FLAT UPRIGHT PA CHEST from 10/22/2010 TECHNIQUE: 2D digital imaging was performed. Three views. FINDINGS: A PICC line has been placed via the right arm. The tip projects in the upper right atrium. Heart size normal. The aorta is mildly tortuous. The lungs are clear. No pneumothorax. IMPRESSION: PICC line is positioned in the right atrium. DATA REPOSITORY: RADIATION DOSE DELIVERED:
[2022-11-08 15:24] VITALS: BP 134/73; PULSE 91; RESP 16; TEMP 36.8; O2SAT 96
[2022-11-08 19:20] VITALS: BP 119/72; PULSE 72; RESP 18; TEMP 36.6; O2SAT 94
[2022-11-08] MEDS: Lovastatin 40 MG TAB PO (19:43)
[2022-11-08] MEDS: Gabapentin 300 MG CAP PO (19:43)
[2022-11-08] MEDS: Allopurinol 300 MG TAB PO (19:45)
[2022-11-08] MEDS: Omeprazole 20 MG CAPCR PO (19:45)
[2022-11-08 22:55] VITALS: BP 104/69; PULSE 95; RESP 18; TEMP 36.6; O2SAT 96
[2022-11-09] MEDS: hydroCHLOROthiazide 12.5 MG TAB PO (00:46)
[2022-11-09] MEDS: Lisinopril 10 MG TAB PO (00:46)
[2022-11-09] MEDS: ceFAZolin 2 GM/50 ML BAG IVPB (03:30)
[2022-11-09 07:10] VITALS: BP 101/66; PULSE 76; RESP 18; TEMP 36; O2SAT 93
[2022-11-09] MEDS: Normal Saline Flush 10 ML SYR IV ×2 (08:00→09:58)
[2022-11-09] MEDS: Aspirin E.C. 81 MG TABEC PO (08:00)
[2022-11-09] MEDS: Celecoxib 200 MG CAP PO (08:00)
[2022-11-09] MEDS: Acetaminophen 500 MG TAB 1000 MG PO ×2 (08:33→14:12)
[2022-11-09] MEDS: rifAMPin 300 MG CAP PO ×2 (08:33→14:12)
--- NOTE | 2022-11-09 09:50 | PTTR_ITS ---
PT Notes Visit Reasons: Infected Right TKA Inpatient Physical Therapy Treatment Note [facility] Date: [] PRECAUTIONS:[] SUBJECTIVE: [] OBJECTIVE: [] PAIN: [] BED MOBILITY/TRANSFERS Rolling L/R: [] Supine-sit: [] Sit-supine: [] Sit-stand: [] Stand-sit: [] Bed-Chair: [] Chair-bed: [] GAIT Assistive Device: [] Weight bearing: [] Assist: [] Distance: [] Deviation: [] VITALS: [] THEREX: Access Code: [email or web address] URL: [email or web address] Date: 11/09/2022 Prepared by: Kelly Rendon Exercises - Supine Heel Slide - 2 x daily - 7 x weekly - 3 sets - 10 reps - Seated Heel Slide - 2 x daily - 7 x weekly - 3 sets - 10 reps - Seated Quad Set - 2 x daily - 7 x weekly - 3 sets - 10 reps - Supine Gluteal Sets - 2 x daily - 7 x weekly - 3 sets - 10 reps - 10s hold - Supine Single Leg Ankle Pumps - 2 x daily - 7 x weekly - 3 sets - 10 reps - Small Range Straight Leg Raise - 2 x daily - 7 x weekly - 3 sets - 10 reps STAIRS:[] ASSESSMENT: [] PLAN: [] TREATMENT CODE/TIME: []
[2022-11-09] MEDS: cefTRIAXone 2 GM/50 ML BAG IVPB (09:58)
[2022-11-09 10:55] VITALS: BP 97/60; PULSE 71; RESP 16; TEMP 36; O2SAT 94
--- NOTE | 2022-11-09 11:55 | DSE_ITS ---
Date of service: 11/09/22 Time of Service: 15:13 DS: Diagnosis Discharge Diagnosis (1) Infection of prosthetic right knee joint: Status: Acute Discharge Plan Disposition Patient Disposition: Home Condition: Good Discharge Details Reason For Visit: Infected Right TKA Admit Date/Time: 11/07/22 11:28 Admit Provider: Jose Guadalupe Puentes Attending Provider: Jose Guadalupe Puentes [facility] Hospital Course: Patient was admitted to the medical/surgical floor following the procedure. The surgery was tolerated well without any notable medical, surgical, or anesthetic complications. Mobilization began postoperatively. He was voiding spontaneously. Vitals were stable. Physical therapy worked with the patient and was cleared for discharge home. No acute medical issues. Patient does report increased discomfort, swelling and concern for blood on Zully dressing. Overall has been doing well - received PT earlier today. Continues to use Cryocuff frequently. Pain was controlled on oral regimen. Patient was overnight for management while waiting on cultures and determining home status for PICC and antibiotic options. Home Meds and New Rx's Prescriptions: New acetaminophen 500 mg tablet 1,000 mg PO Q8H PRN Qty: 90 0RF Rx Instructions: Take two tablets up to every 8 hours as needed for pain aspirin 81 mg tablet,delayed release (DR/EC) 81 mg PO BID 30 Days Qty: 60 0RF celecoxib [Celebrex] 200 mg capsule 200 mg PO BID PRNQty: 60 0RF Rx Instructions: Take one tablet twice daily for pain and inflammation docusate sodium [Colace] 100 mg capsule 100 mg PO BID Qty: 30 0RF gabapentin 300 mg capsule 300 mg PO QHS Qty: 14 0RF Rx Instructions: Take one tablet at bedtime oxycodone 5 mg tablet 5 mg PO Q4H PRNQty: 18 0RF Rx Instructions: Take one tablet up to every 4 hours as needed for severe postoperative pain rifampin 300 mg capsule 300 mg PO BID 42 Days Qty: 84 0RF Rx Instructions: Take one capsule twice daily Continued allopurinol 300 mg tablet 300 mg PO HS Rx Instructions: prevent gout lisinopril-hydrochlorothiazide 10-12.5 mg tablet 1 tab PO HS omeprazole magnesium 20 mg capsule,delayed release(DR/EC) 20 mg PO HS Rx Instructions: due to presence of Pack's esophagus and gastroesophageal reflux lovastatin 40 mg tablet 40 mg PO DAILY Discontinued oxycodone 5 mg tablet 5 mg PO Q8H MDD 3 tabs PRN (Reason: severe postoperative pain) Qty: 15 0RF Rx Instructions: Take one tablet up to every 8 hours as needed for severe postoperative pain meloxicam 7.5 mg tablet 7.5 mg PO BID Qty: 60 0RF Rx Instructions: Take one tablet every 12 hours as needed for severe postoperative pain oxycodone 5 mg tablet 5 mg PO Q8H MDD 15mg PRN (Reason: pain) Qty: 10 0RF acetaminophen 500 mg tablet 1,000 mg PO Q8H PRN Qty: 90 0RF Rx Instructions: Take two tablets up to every 8 hours as needed for pain docusate sodium [Colace] 100 mg capsule 100 mg PO BID PRN Discharge Instructions Additional Instructions: Total Knee I&D, Synovectomy and Poly Exchange Discharge Instructions Activity: The most important activity is to walk and to work on gentle motion (both flexion and extension). You should try to take short walks a few times a day. It is important that when resting you work on keeping the knee straight. Avoid putting a pillow behind the knee as this will encourage flexion. Work on range of motion exercises as provided by Physical Therapy. - Start outpatient physical therapy within 2 weeks. - You should wear the SEVERO hose on both legs for 2 weeks. You may remove these at night. You may also use any compression sock in place of the SEVERO hose. - Utilize [employer] to review exercises, see videos on exercises and obtain basic information pertaining to your surgery and your recovery. Dressing: Keep ZULLY dressing in place until orthopedic appointment. Contact office if issues with dressing. The wound and dressing may get wet after 3 days but avoid soaking the dressing or otherwise it will need to be changed. Many people prefer covering the dressing with cling wrap (saran wrap) to minimize it from getting soaked. If it gets wet, just pat dry. If it starts to peel off then it will need to be changed. Medications: - You should take Tylenol and anti-inflammatory Celebrex as your primary pain control medications. If the Celebrex is too expensive or not covered, please call the office for another alternative (Advil/Ibuprofen or Naproxen/Aleve) - You have been prescribed a stronger pain medication Oxycodone for breakthrough pain, take as needed as prescribed. - You take a stomach acid reduction agent Omeprazole at baseline - continue with this medication to help reduce stomach acid and reflux. - You have been prescribed Gabapentin to take at night for restlessness and nerve pain. - You will be taking Aspirin 81mg twice a day for DVT prevention unless instructed otherwise. - If you have constipation you should take Colace (which has been prescribed) or Miralax (which is available [id number]). It takes most people 3-4 days to have a bowel movement. - You will be managed on two antibiotics - you will take one oral antibiotic and one through your PICC line. Your oral medication - rifampin 300 mg twice daily.?Your IV medication - ceftriaxone 2 g IV daily.? Follow-up: 2 weeks If you have any acute concerns or questions, please do not hesitate to contact the office at [phone]. You may contact Dr. Puentes with any questions after hours through the hospital at [phone] or on his cell phone at [phone]. Stand Alone Forms: Nursing Discharge Form Referrals: Jose Guadalupe Puentes MD [ [facility] STAFF PHYSICIAN] - 11/23/22 11:45 am Activity:: Activity as Tolerated Equipment/Supplies:: Walker Diet:: As Tolerated Discharge Orders Discharge Orders: Discharge Order (Routine); Ordered 11/09/22 Ordered By: Elena Smith Discharge Data Discharge Date/Time-TO BE ENTERED AT DEPARTURE: 11/09/22 15:45 DS: Summary Time Spent with Patient providing and/or coordinating discharge services: Less than 30 minutes Status at Discharge Functional status at discharge: uses cane/walker Overall status at discharge: patient is progressing back to baseline Mental Status: mental status grossly normal Speech and Movement: speech and movement normal Mood: congruent mood Affect: normal affect Exam Const General: cooperative, healthy appearing, comfortable and no acute distress Nutritional Appearance: well nourished Resp Effort & Inspection: normal respiratory effort and able to speak in complete sentences Extrem Other: Right lower extremity examination: Gentry bandage was removed. Zully dressing in place - dry and intact. There is blood saturating the distal half of the bandage but continues to be actively working with no alarms. There is moderate edema about the knee. Passive knee ROM was mildly restricted but tolerated well. He is able to demonstrate active knee extension. Psych Mental Status: mental status grossly normal Speech and Movement: speech and movement normal Mood: congruent mood Affect: normal affect DS: Data Vitals/I&O Vitals and I&O: Vital Signs Temperature 96.8 F L 11/09/22 10:55 Temperature Source Tympanic 11/09/22 10:55 Pulse 71 11/09/22 10:55 Pulse Rhythm Regular 11/09/22 08:00 Respiratory Rate 16 11/09/22 10:55 Respiratory Effort Normal, Non-Labored 11/09/22 08:00 Respiratory Depth Normal 11/09/22 08:00 Respiratory Pattern Normal 11/09/22 08:00 Blood Pressure 97/60 L 11/09/22 10:55 Blood Pressure Mean 76 11/07/22 13:00 Blood Pressure Position Supine 11/07/22 13:00 Pulse Oximetry 94 11/09/22 10:55 Oxygen Delivery Method Room Air 11/09/22 10:55 Oxygen Flow Rate 0 11/09/22 10:55 Pain Level 2 11/09/22 08:33 Comment VS called over radio 11/09/22 10:55 Intake & Output 11/08/22 11/08/22 11/09/22 11:59 23:59 11:59 Intake Total 530 / 1610 1080 / 1610 370 / 370 Output Total 300 / 800 500 / 800 Balance 230 / 810 580 / 810 370 / 370 Intake: IV 50 / 170 120 / 170 Oral 480 / 1440 960 / 1440 370 / 370 Output: Urine 300 / 800 500 / 800 Other: Urine Color Yellow Yellow Straw [place] Urine Appearance Clear Clear Clear Urine Odor Normal Comment pT stated they voided heavily around 4am Pt voiding independently throughout this shift. Adequate output. Hat removed from toilet at pt's request. pT stated they were up to void around 10a Voiding Methods Toilet Toilet Toilet Data Completed and Pending Labs on day of discharge: 11/07/22 14:12 Knee - Right Anaerobic Culture - Pending 11/07/22 14:12 Knee - Right Anaerobic Culture - Pending Preliminary micro results at discharge 11/07/22 14:17 Surgical Culture - Preliminary Knee - Right 11/07/22 14:12 Surgical Culture - Preliminary Knee - Right 11/07/22 14:12 Anaerobic Culture - Pending Knee - Right 11/07/22 14:12 Anaerobic Culture - Pending Knee - Right PFSH All Active Problems Infection of prosthetic right knee joint (Acute) Arthrofibrosis of total knee arthroplasty (Acute) RIGHT S/P Manipulation under Anesthesia: 10/31/2022 Surgical wound dehiscence (Acute) Painful total knee replacement, right (Acute) History of right knee joint replacement (Acute 09/12/22) Pack esophagus (Acute) Acquired ichthyosis (Acute 03/11/12) Acquired thrombocytopenia (Acute 01/14/01) HEP C (TREATED SUCCESSFULLY) AND CIRRHOSIS Cirrhosis (Acute) [place] 2003[place] [facility] [place], [place] Hep C virus by 01/2006; hep C +/- EtOH; mild varicosities 12/2014 EGD Family history of colon cancer in mother (Acute 08/07/16) Mother had surgery age 72, but lived to Gout (Acute 04/02/85) ALLOPURINOL , RESUMED Hyperlipidemia (Acute 10/31/08) goal LDL <130; RX begun 10/2008 Hypertension (Acute 04/03/77) h/o PHEO W/U 1977 neg; high bp at colonoscopy 2009 Pain, joint, multiple sites (Acute 06/22/11) ?early djd Malignant melanoma of skin of trunk (Acute 10/31/05) H/O ON TRUNK back 2005, HAMMER Overweight (Acute 06/22/11) GOAL 190LBS Proteinuria (Acute 06/29/98) Varicose veins of right lower extremity (Acute 10/23/14) Chronic hepatitis (Chronic 04/02/04) GERD (gastroesophageal reflux disease) (Chronic) Trigger finger (Acute) History of hepatitis C (Chronic) Treated with interferon 2004, presumably cured Cataract (Chronic) Cystoid macular edema (Acute) Swollen R knee (Acute) Degenerative joint disease of left knee (Acute) Depo-Medrol injection: 08/21/22 01/02/22 Medical History Epiretinal membrane (ERM) of right eye 08/2021 Dr Bentley, [facility] Surgical History Colonoscopy - IV Sedation (06/02/17) Colonoscopy - MAC (07/26/09) EGD - MAC (01/06/15) w/bx, antral mucosa w intestinal metaplasia and severe focally erosive reacitve goatropathy, H/O eye surgery 05/2022 right Hx of cataract removal with insertion of prosthetic lens 2020 bilateral [place]IVER BIOPSY (01/05/05[place] [facility] [place] S/P left cataract extraction (09/14/20) S/P right cataract extraction (09/01/20) Family History Mother , cancer issues at age 92. Colon cancer 72 Father , [place] at age 72. No problems noted. Brother Age: 67 Alcohol abuse Essential hypertension Social History Smoking/Tobacco Use Status: Former Tobacco Use Quit Date: 04/02/84 Smoking risk assessment performed?: Yes Alcohol Intake: current Alcohol Intake frequency: 0-2 drinks per day Alcohol type: wine Drug use: Never Substance use type: does not use Details: Hasn't been drinking wine lately-no alcohol x 30 days Household members: none Housing: house Number of Children: 0 Communication Needs: Corrective Lenses current occupation: retired from [employer] [place] Current gender identity: male What type of physical activity do you participate in: walking Duration: 30-45 minutes/day Frequency: daily Seatbelt use: always Drive intox or ride w/intox commercial front load driver: No Working smoke detector in home: Yes Fire extinguisher in home: Yes Carbon monox detector in home: Yes Do you feel safe at home: Yes Additional Social history: Live alone Time Spent with Patient Time Spent with Patient: 45-69 minutes Time was spent: preparing to see the patient(eg.review tests), obtaining and/or reviewing separately otained hiistory, ordering medications,tests, procedures and care coordination
--- NOTE | 2022-11-09 13:38 | PDOC.CMDIS ---
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 Visits: 0 Answers: Total Score: 7 Risk of Readmission: Low Risk Care Management Discharge Plan Reason for Hospitalization: Infection of prosthetic right knee Discharge Plan: Anthony is discharged home via private vehicle with family. Anthony will follow up with outpatient providers and his discharge plan of care as instructed. New [facility] RN will be following his Home IV ABX ordered through [facility]. Anthony will follow up with Dr. Puentes on 11/23/22 as scheduled and have outpt PT, as discussed with Ortho. Patient/Family Education Needs: Review discharge instructions, limitations, medications and plan to follow up with Ortho and PCP. Services Needed at Discharge: Home Health Care Services ([facility] will support home infusions. 1st infusion/education session is planned for 11/10/22 at 1pm. CM coordinated with Roberto. SANDRA notified Josselyn that weekly labs are needed. ), Infusion Therapy ([facility] is hand delivering IV med and DME tomorrow morning. Med and supplies are guaranteed to be at his home by 1pm on 11/10/22, per [facility] at [facility].) and Physical Therapy (Outpatient PT)
--- NOTE | 2022-11-09 16:59 | PT.INDS ---
Date of service: 11/09/22 Time of Service: 09:40 PT Notes Visit Reasons: Infected Right TKA Physical Therapy Inpatient Discharge Summary Date: 11/09/2022 Dates of Service: 11/08/2022 through 11/09/2022 Referring Doctor:? Elena Smith,? [facility] PT Orders: PT CONSULT: S/P Ortho Surgery Precautions: WBAT on the R LE with AD. Patient Profile/Admitting Diagnosis:? Anthony is a 72-year-old male with diagnosis of infection of R prosthetic knee joint and is S/P irrigation and debridement,? synovectomy,? and polyetheylene exchange on postoperative day 2.? He is S/P R TKA on 09/12/2022 and is S/P R knee manipulation on 10/31/2022.? Subjective: Concerned about new stiffness and and swelling in R knee. Slept better last night. States that PA from ortho will be here to look at him before he leaves today. Objective: General Observation: Supine in bed. Mental Status: Alert and oriented x4 Pain: 3-4/10 pain in the right knee ROM: Right Lower Extremity: Hip flexion WFL. Hip abduction WFL. Knee flexion 15 degrees to 90 degrees.? Knee extension -15 degrees. Ankle dorsiflexion WFL. Ankle plantarflexion WFL. Left Lower Extremity: Hip flexion WFL. Hip abduction WFL. Knee flexion 5 degrees to 118 degrees. Knee extension -5 degrees.? Ankle dorsiflexion WFL. Ankle plantarflexion WFL. Strength: Right Lower Extremity: Hip flexors 4/5. Hip abductors 4/5. Knee flexors 3-/5. Knee extensors 3-/5. Ankle dorsiflexors 5/5. Ankle plantarflexors 5/5. Left Lower Extremity:Hip flexors 5/5. Hip abductors 5/5. Knee flexors 3-/5. Knee extensors 3-/5. Ankle dorsiflexors 5/5. Ankle plantarflexors 5/5. Sensation: Intact as to pain and light pressure in bilateral lower extremities Bed Mobility/Transfers: Supine to sit independent Sit to stand independent with SPC Stand to sit independent with SPC Bed to chair independent with SPC in-room ambulation independent with SPC Gait: 200 feet + 200 feet using SPC with step through gait pattern,? supervision only.? [place] mildly off balance initially but resolved at end of walk.? Stairs: 6 x 4-inch steps and 4 X 6-inch steps while holding onto 1 rail,? no cane needed.? Minimal cues needed for correct technique and for increased flexion in R knee to minimize hip rotation on R.? Balance: Static Sitting: Normal Dynamic Sitting: Normal Static Standing: Fair Dynamic Standing: Fair Special Tests: Mobility Limitations Standardized Measure [facility]-P[facility] 6 clicks Basic Mobility Inpatient Short Form: Raw Score: 24? CMS Score: 0% deficit Informed Consent/Education:? Patient was instructed in purpose of PT consult.? Packet containing TKA exercise protocol has been given to patient.? Education and training on initial set of exercises that can be done at home have been completed with patient: ? THERA EX: - Supine and seated Quadricep Sets? - 1 x daily - 7 x weekly - 1 sets - 10 reps - 5 hold, L LE MLD incorporated - Supine Heel Slide? - 1 x daily - 7 x weekly - 1 sets - 10 reps - 5 hold, L LE MLD incorporated - Supine Ankle Pumps? - 1 x daily - 7 x weekly - 1 sets - 10 reps - 5 hold, L LE MLD incorporated - Small Range Straight Leg Raise? - 1 x daily - 7 x weekly - 1 sets - 10 reps - 5 hold, L LE MLD incorporated - Seated March? - 1 x daily - 7 x weekly - 1 sets - 10 reps - 5 hold Assessment: Needed R LE lymphatic drainage incorporated into muscle setting exercises to minimize excessive scar formation and allow gentle knee joint mobilization while facilitating physiologic lymphatic drainage of tissue debris that can assist with overall healing. Patient concerned about new stiffness and developing swelling in knee but was educated about continued gentle R knee mobilization and HEP performance. He was satisfied as after the exercise session he was able to walk safely and with no increase in L knee pain using his single point cane. It was emphasized that he continues with early level HEP given to him until he is again seen at outpatient for exercise/mobility progression. He is discharged from services today with recommendation of continue OP PT services for post-op rehab. Goals: 1. Independent gait on level surface with use of SPC for at least 500 feet without report of pain nor dyspnea MET 2. Independent stair negotiation while holding onto 1 rail for at least 3 steps without report of pain nor dyspnea MET 3. Independent with home exercise program MET 4. Good static and dynamic standing balance/tolerance NOT MET, CONTINUE with OP PT DISCHARGE RECOMMENDATIONS: [] ? Home with no services [] [] ? Home with services [specify] [X] ? Home with outpatient PT. Home when medically cleared by orthopedic surgeon.? Recommend outpatient PT services in order to optimize functional mobility outcomes and facilitate return to independent community ambulation without an assistive device. [] ? SNF for continued rehabilitation [] [] ? [facility] [] [] ? SNF versus LTC based on ability to participate and progress [] TREATMENT CODE/TIME: 96613 x 25 minutes, 37605 x 20 minutes beginning at 11:00 AM. Thank you for the opportunity to participate in the care of this patient. Debbie Pearce PT, DPT, CLT [facility] [place], [place]
== END 2022-11-09 15:45 | disposition home or self-care (01) | DRG 488 ==
LOC: PDS 11:28 → MS 16:21
PROVIDERS: Admitting Provider Student in an Organized Health Care Education/Training Program; PCP Family Medicine; Visit Provider Student in an Organized Health Care Education/Training Program
PROC: 0SPC09Z Removal of Liner from Right Knee Joint, Open Approach (ICD-10-PCS; CPT 27486; principal; 2022-11-07 15:00)
DX: T84.82XA Fibrosis due to internal orthopedic prosthetic devices, implants and grafts, initial encounter (principal); T81.31XA Disruption of external operation (surgical) wound, not elsewhere classified, initial encounter; T84.53XA Infection and inflammatory reaction due to internal right knee prosthesis, initial encounter; Z96.651 Presence of right artificial knee joint; K21.9 Gastro-esophageal reflux disease without esophagitis; E78.5 Hyperlipidemia, unspecified; I10 Essential (primary) hypertension; K74.60 Unspecified cirrhosis of liver; K22.70 Barrett's esophagus without dysplasia; L85.0 Acquired ichthyosis; Z86.19 Personal history of other infectious and parasitic diseases
CPT/HCPCS: 27486; 36569; 36415; 76942; 77001; 80048; 80053; 85027; 86850; 86900; 86901; 87077; 97110; 97116; 97162; 97530; 86140; 87070; 87075; 87186; 87205; J0690; J1100; J2250; J2371; J2405

== ENCOUNTER → 2022-11-23 11:43 | Outpatient (BNVA) | payer MEDICARE, BC, SELFPAY | PROVIDERS: PCP Family Medicine; Referring Provider Family Medicine; Visit Provider Student in an Organized Health Care Education/Training Program | DX: Z47.1 Aftercare following joint replacement surgery (principal); T84.53XA Infection and inflammatory reaction due to internal right knee prosthesis, initial encounter; Z96.651 Presence of right artificial knee joint ==

== ENCOUNTER → 2022-12-21 10:54 | Outpatient (BNVA) | payer MEDICARE, BC, SELFPAY | PROVIDERS: PCP Family Medicine; Referring Provider Family Medicine | DX: Z47.1 Aftercare following joint replacement surgery (principal); Z96.651 Presence of right artificial knee joint; T84.53XA Infection and inflammatory reaction due to internal right knee prosthesis, initial encounter ==

== ENCOUNTER 2023-01-15 04:43 | Outpatient (CLI) | payer MEDICARE, BC, SELFPAY ==
[2023-01-15 13:01] LABS: ALT 33 U/L (16-63); AST 42 U/L (15-37); Alkaline Phosphatase 89 U/L (46-116); Anion Gap 7.3 mmol/L (3-11); BUN 32 mg/dL (7-18); Bilirubin, Total 0.5 mg/dL (0.2-1.0); C-Reactive Protein 1.27 mg/dL (0.0-0.3); CO2 27.7 mmol/L (21.0-32.0); CREATININE 1.4 mg/dL (0.70-1.30); Calcium 9.7 mg/dL (8.5-10.1); Chloride 101 mmol/L (98-107); Estimated GFR 53.74 (mL/min/1.73m2); Glucose 105 mg/dL (74-106); Potassium 4.7 mmol/L (3.5-5.1); Sodium 136 mmol/L (136-145); Total Protein 7.6 g/dL (6.4-8.2)
== END 2023-01-15 04:44 | disposition home or self-care (01) ==
LOC: LBO 04:44
PROVIDERS: PCP Family Medicine; Visit Provider Student in an Organized Health Care Education/Training Program
DX: T84.53XA Infection and inflammatory reaction due to internal right knee prosthesis, initial encounter (principal)
CPT/HCPCS: 36415; 80053; 86140; J1040

== ENCOUNTER 2023-08-20 05:28 | Outpatient (CLI) | payer MEDICARE, BC, SELFPAY ==
[2023-08-20 12:37] LABS: ESR 4 mm/hr (0-20)
[2023-08-20 12:51] LABS: C-Reactive Protein < 0.50 mg/dL (<or=0.5)
== END 2023-08-20 05:29 | disposition home or self-care (01) ==
LOC: LBO 05:29
PROVIDERS: PCP Family Medicine; Visit Provider Student in an Organized Health Care Education/Training Program
DX: T84.53XA Infection and inflammatory reaction due to internal right knee prosthesis, initial encounter (principal); Z98.890 Other specified postprocedural states
CPT/HCPCS: 20610; 36415; 85652; J1010; 86140

== ENCOUNTER 2023-08-20 14:47 | Outpatient (CLI) | payer MEDICARE, BC, SELFPAY ==
--- NOTE | 2023-08-20 13:00 | DI.RAD_ITS ---
Exam(s) XR KNEE RT 2V AP,LAT EXAM: XR KNEE RT 2V AP,LAT INDICATION: annual f/u R TKA. COMPARISON: CR XR KNEE RT 3V AP,LAT,SHRUTHI from 10/23/2022 TECHNIQUE: 2D digital imaging was performed. Two views. FINDINGS: There has been no change in the alignment of the total knee prosthesis. No abnormal surrounding bony lucencies. DATA REPOSITORY: RADIATION DOSE DELIVERED:
== END 2023-08-20 14:48 | disposition home or self-care (01) ==
LOC: DIORS 14:47
PROVIDERS: PCP Family Medicine; Visit Provider Student in an Organized Health Care Education/Training Program
DX: Z96.651 Presence of right artificial knee joint (principal); Z47.1 Aftercare following joint replacement surgery
CPT/HCPCS: 20610; 36415; 85652; J1010; 73560; 86140

== ENCOUNTER → 2023-08-23 10:48 | Outpatient (BNVA) | payer MEDICARE, BC, SELFPAY | PROVIDERS: PCP Family Medicine; Referring Provider Family Medicine; Visit Provider Physical Therapy Assistant | DX: Z12.11 Encounter for screening for malignant neoplasm of colon (principal); K22.70 Barrett's esophagus without dysplasia; Z80.0 Family history of malignant neoplasm of digestive organs | CPT/HCPCS: 99213 ==

== ENCOUNTER 2023-09-04 10:31 | Day surgery (SDC) | payer MEDICARE, BC, SELFPAY ==
[2023-09-04 10:50] VITALS: BP 145/97; PULSE 75; RESP 16; TEMP 36.3; O2SAT 97
--- NOTE | 2023-09-04 11:10 | ENDO_ITS ---
Date of service: 09/04/23 Time of Service: 11:10 Endoscopy Report PROCEDURE DESCRIPTION: PROCEDURES PERFORMED: 1. EGD with biopsies 2. Cold forceps polypectomy PREOPERATIVE DIAGNOSIS: Pack's esophagus surveillance POSTOPERATIVE DIAGNOSIS: Mild duodenitis, stomach polyps, Pack's esophagus SURGEON: Mica Bergeron MD INDICATION FOR PROCEDURE: 73-year-old man due for surveillance endoscopy because of a history of Pack's esophagus. He is not really sure why he ever had endoscopy to begin with as he denies any symptoms of any sort. He has no current problems/symptoms or complaints. He recently stopped his antacid medication because he ran out. FINDINGS: D2/D3 = normal D1/bulb = normal -mild/minimal inflammation noted consistent with duodenitis. Cold forceps biopsies taken to confirm. Pylorus = normal Antrum = normal appearance, no ulcers, cold forceps biopsies were taken to rule out H. pylori routinely Body = normal appearance, biopsies taken with cold forceps technique routinely Fundus = normal, a couple of scattered benign?appearing stomach polyps are noted (less than 10) and 1 was removed to confirm benign histology. Cardia = normal Hiatus = no hiatal hernia Distal esophagus = no active inflammation, no esophagitis, there are 2 very smal l segments/strips of Pack's esophagus above the GE junction. They are smaller than 1 cm and not circumferential. Each was biopsied with cold forceps technique. Mid esophagus = normal. No varices. Proximal esophagus/hypopharynx/vocal cords = normal SURVEILLANCE-INTERVAL/FOLLOW-UP: Follow-up with PCP and/your GI doctors. Mild duodenitis might be rebound because you recently stopped your antacid medication. Specimens: Yes EBL: Minimal COMPLICATIONS: None Procedure in detail: The patient gave written consent and was in agreement with the indications, the potential risks as well as the benefits of the procedure. The patient was taken to the endoscopy suite and laid on his left side. Anesthesia was given which was tolerated well. We performed a timeout and we are in agreement I started the procedure. A well-lubricated endoscope was gently and carefully advanced down the esophagus, into the stomach the scope was and through the pylorus into the duodenum. The scope was then slowly withdrawn with the above-noted findings/interventions. The patient tolerated the procedure well and was then turned for colonoscopy (see separate procedure note).
--- NOTE | 2023-09-04 11:11 | COLE_ITS ---
Date of service: 09/04/23 Time of Service: 11:11 Colonoscopy Report Procedure Description: PROCEDURES PERFORMED: 1. Colonoscopy with cold forceps polypectomy PREOPERATIVE DIAGNOSIS: Surveillance colonoscopy POSTOPERATIVE DIAGNOSIS: Colon polyp, mild sigmoid diverticulosis, grade 1 i nternal hemorrhoids SURGEON: Mica Bergeron MD INDICATION FOR PROCEDURE: the patient is a 73-year-old man due for surveillance colonoscopy. He has no symptoms. His mother had colon cancer. He is on 5?year surveillance intervals. Prior colonoscopies reportedly normal. FINDINGS: The terminal ileum was normal. In the transverse colon a small 2-3 mm sessile polyp was removed with cold forceps technique. In the sigmoid colon and some mild diverticular changes are present. No active diverticulitis. There are mild grade 1 internal hemorrhoids noted on retroflexion. SURVEILLANCE interval/FOLLOW-UP: 5 years because of the family history. SPECIMENS: 1 EBL: Minimal COMPLICATIONS: None QUALITY of prep: Excellent Procedure in detail: The patient gave written consent and was in agreement with the indications, the potential risks as well as the benefits of the procedure. He was turned from upper endoscopy (see separate procedure note) and kept in the left lateral position and anesthesia was continued and I started the colonoscopy portion of the procedure. Digital rectal and visual examination was performed and grossly within normal limits. A well-lubricated flexible colonoscope was then introduced and passed without any notable difficulty all the way to the cecum identified by the ileocecal valve and the appendiceal orifice. The terminal ileum was intubated and looked normal. The scope was then slowly withdrawn with the above-noted findings. The patient tolerated the procedure well and was taken to the PACU in hemodynamically stable condition.
--- NOTE | 2023-09-04 11:11 | W.PM.DSUDISC ---
Date of service: 09/04/23 Time of Service: 11:23 Discharge Plan Disposition Patient Disposition: Home Condition: Good Discharge Details Attending Provider: Nik Bergeron Primary Care Provider: Hilario Mai Home Meds and New Rx's Prescriptions: No Action naproxen sodium [Aleve] 220 mg capsule 440 mg PO QHS PRN Patient Comments: Sometimes will take 3 capsules allopurinol 300 mg tablet 300 mg PO HS Qty: 90 3RF Rx Instructions: prevent gout polyethylene glycol 3350 17 gram/dose powder 17 g PO ONCE Qty: 238 0RF Rx Instructions: Take per colonoscopy instructions provided by ordering providers office bisacodyl 5 mg tablet,delayed release (DR/EC) 5 mg PO ONCE Qty: 4 0RF Rx Instructions: Per Colonoscopy bowel prep instructions lisinopril-hydrochlorothiazide 10-12.5 mg tablet 1 tab PO HS omeprazole magnesium 20 mg capsule,delayed release(DR/EC) 20 mg PO HS Rx Instructions: due to presence of Pack's esophagus and gastroesophageal reflux acetaminophen 500 mg tablet 1,000 mg PO Q8H PRN Qty: 90 0RF Rx Instructions: Take two tablets up to every 8 hours as needed for pain lovastatin 40 mg tablet 40 mg PO HS Discharge Instructions Additional Instructions: FINDINGS: On upper endoscopy: Very small Pack's esophagus changes are present. They are not anything to worry about. Also some mild duodenitis was seen. This might be from stopping your antacid medication recently. You can discuss further your PCP. You probably don't need to have another Endoscopy. On colonoscopy: A small polyp was found and removed. It is nothing to worry about. It gets tested in a lab and those results dictate when your next colonoscopy should be. Probably in 5 years because of your family history. Stand Alone Forms: Anesthesia Discharge InstAgustin, Zoë Nuñez (LUCILA) Activity:: Activity as Tolerated Diet:: As Tolerated
[2023-09-04] MEDS: Lactated Ringers 1,000 ML 80 ML IV (11:26)
--- NOTE | 2023-09-04 11:38 | ANES.PREOP_ITS ---
General Info Date of Service Date Performed: 09/04/23 Height: 5 ft 11 in Weight: 88.5 kg Body Mass Index (BMI): 27.2 Surgical Procedure: Operation Date: 09/04/23 12:05 Proposed Procedure Side Surgeon p Colonoscopy/Gastroscopy Nik Bergeron MD Actual Procedure Side Surgeon p Colonoscopy/Gastroscopy Nik Bergeron MD Meds Allergies and Home Medications Allergies Allergy/AdvReac Type Severity Reaction Status Date / Time Beta-Blockers AdvReac Intermediate Drowsiness Verified 09/04/23 11:00 (Beta-Adrenergic Bloc 1978 simvastatin AdvReac Intermediate tired Verified 09/04/23 11:00 Home Medication Medication Instructions Recorded lisinopril 10 1 tab PO HS 09/11/22 mg-hydrochlorothiazide 12.5 mg tablet omeprazole magnesium 20 mg 20 mg PO HS 09/11/22 capsule,delayed release acetaminophen 500 mg tablet 1,000 mg (2 x 500 mg) PO Q8H PRN 11/09/22 pain #90 tabs naproxen sodium 220 mg capsule 440 mg PO QHS PRN 01/15/23 (Aleve) allopurinol 300 mg tablet 300 mg PO HS #90 tabs 08/20/23 polyethylene glycol 3350 17 17 g PO ONCE #238 grams 08/23/23 gram/dose oral powder bisacodyl 5 mg tablet,delayed 5 mg PO ONCE Colonoscopy Bowel 08/29/23 release Prep #4 tabs lovastatin 40 mg tablet 40 mg PO HS 09/04/23 Current Visit Medications: Current Medications Generic Name Dose Route Start Last Admin Trade Name Freq PRN Reason Stop Dose Admin Ringer's Solution 1,000 mls @ 80 mls/hr 09/04/23 06:00 09/04/23 11:26 IV 09/04/23 23:59 80 mls/hr INFUSION LEA Administration IV Miscellaneous Supplies 1 each 09/04/23 06:00 Iv Access IV 09/04/23 23:59 DIRECTED LEA Sodium Chloride 0 ml 09/04/23 06:00 Normal Saline Flush 10 Ml Syr IV 09/04/23 23:59 PRN PRN Sodium Chloride 0 ml 09/04/23 06:00 Normal Saline 10 Ml Vial IJ 09/04/23 23:59 DIRECTED PRN Sterile Water 0 ml 09/04/23 06:00 Water,Injection,Sterile 10 Ml Vial IJ 09/04/23 23:59 DIRECTED PRN PFSH Active Problems Active Problems: Problem Status Onset Code Infection of prosthetic right knee joint T84.53XA Arthrofibrosis of total knee arthroplasty T84.82XA Surgical wound dehiscence T81.31XA History of right knee joint replacement 09/12/22 Z96.651 Degenerative joint disease of left knee M17.12 Swollen R knee M25.461 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 Cataract H26.9 History of hepatitis C Z86.19 Trigger finger M65.30 GERD (gastroesophageal reflux disease) K21.9 Chronic hepatitis 04/02/04 K73.9 Varicose veins of right lower extremity 10/23/14 I83.91 Proteinuria 06/29/98 R80.9 Overweight 06/22/11 E66.3 Malignant melanoma of skin of trunk 10/31/05 C43.59 Pain, joint, multiple sites 06/22/11 M25.50 Hypertension 04/03/77 I10 Hyperlipidemia 10/31/08 E78.5 Gout 04/02/85 M10.9 Family history of colon cancer in mother 08/07/16 Z80.0 Cirrhosis K74.60 Acquired thrombocytopenia 01/14/01 D69.6 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 Surgical History Surgical History Hx of total knee replacement Hx of cataract removal with insertion of prosthetic lens 2020 bilateral H/O eye surgery 05/2022 right S/P right cataract extraction (09/01/20) S/P left cataract extraction (09/14/20) LIVER BIOPSY (01/05/05) [facility] [place], CIRRHOSIS EGD - MAC (01/06/15) w/bx, antral mucosa w intestinal metaplasia and severe focally erosive reacitve goatropathy, Colonoscopy - MAC (07/26/09) Colonoscopy - IV Sedation (09/01/16) Tobacco Smoking/Tobacco Use Status: Former Tobacco Use Alcohol Alcohol Intake: current Alcohol intake frequency: 0-2 drinks per day Alcohol type: wine Substance Use Substance use: Socially Substance use type: marijuana Details: 2-3x month Vital Signs and Lab Results Vital Signs Most Recent Vital Signs in EMR: Most Recent Vital Signs Temp Pulse Resp BP Pulse Ox 36.3 C L 75 16 145/97 H 97 09/04/23 10:50 09/04/23 10:50 09/04/23 10:50 09/04/23 10:50 09/04/23 10:50 Lab Results Blood Type / Crossmatch: No Data to Display Complete Blood Count: No Data to Display Complete Metabolic Panel: C-Reactive Protein < 0.50 mg/dL (<or=0.5) 08/20/23 12:33 Liver Function Panel: No Data to Display Coagulation Panel: No Data to Display Cardiac Panel: No Data to Display Arterial Blood Gas: No Data to Display Venous Blood Gas: No Data to Display Pancreas Panel: No Data to Display Thyroid Panel: No Data to Display Infectious Disease: No Data to Display Blood Cultures: No Data to Display Toxicology Panel: No Data to Display Imaging and Studies Imaging and Studies Study information below may be from another EMR and interpreted by another provider. Please see original notes in EMR for more complete details. EKG Summary: 08/22: sinus. Anesthesia Assessment and Plan Anesthesia History Personal History: No History of Anesthesia Complications Family History: No Family History of Anesthesia Complications Exercise Tolerance Exercise Tolerance: Metabolic Equivalents<4 Pertinent Negatives Pertinent Negatives: No Major Pulmonary Symptoms or Complaints and No History of CVA/TIA Cardiac & Pulmonary Exam Cardiac Exam: Normal S1/S2 Heart Sounds Pulmonary Exam: Clear Bilateral Breath Sounds Implantable Cardiac Device Does patient have a Pacemaker or an ICD?: No Airway Exam Known Difficult Airway: No Mallampati Class: 2 Mouth Opening: Normal (> 3cm) Thyromental Distance: Greater than 3 cm Neck Range of Motion: Full ROM Neck Circumference: Normal Teeth Condition: Normal Dentition ASA Classification ASA Score: ASA 3 Emergency Case?: No NPO Status NPO Status: NPO Clears >2 hours, Solids >8 hours Anesthesia Plan Resuscitation Status: Full Code Anesthesia Technique: General Anesthesia Airway Planned: Natural Airway Monitors Used: Standard Monitors
[2023-09-04 11:39] VITALS: BMI 27.2
--- NOTE | 2023-09-04 11:39 | STOM_PTH ---
PATIENT: Anthony Armstrong JR LOC: [facility] U#:[id number] AGE/SX: 73/M ROOM: RE09/04/[address]: Nik Bergeron : 1950 BED: DIS: 09/04/2023 SPEC #: [id number] RECD: 09/04/23 12:50 STATUS: LAUREN RE #: [id number] VARSHA: 09/04/23 11:[address]: Nik Bergeron DEPT: Surgical Specimen RECD BY: Ghazal Barraza ENTERED: 09/04/23 12:51 SP TYPE: STOMACH OTHR DR: Hilario Mai DO Tissues: 1 - BIOPSY BOWEL 2 - STOMACH BIOPSY 3 - STOMACH BIOPSY 4 - ESOPHAGUS BIOPSY 5 - ESOPHAGUS BIOPSY 6 - BIOPSY BOWEL Procedures: GROSS AND MICRO LEVEL 4 Comments: [id number]
[2023-09-04 12:03] VITALS: BP 105/84; PULSE 83; RESP 16; TEMP 36.4; O2SAT 95
--- NOTE | 2023-09-04 12:05 | W.ANESPOSTOP ---
Postoperative Evaluation Date, Time and Location Date Performed: 09/04/23 Time Performed: 12:05 Patient Location: Day Surgery Unit Vital Signs Most Recent Imported Vital Signs: Most Recent Vital Signs Temp Pulse Resp BP Pulse Ox 36.4 C L 83 16 105/84 95 09/04/23 12:03 09/04/23 12:03 09/04/23 12:03 09/04/23 12:03 09/04/23 12:03 Pain Score Most Recent Pain Score: Most Recent Pain Score Pain Level 0 09/04/23 12:03 Assessment Mental Status: Awake (Alert & Oriented to Patient Baseline) Airway and Respiratory Function: Patent airway with normal (patient baseline) respiratory exam Cardiovascular Function: Hemodynamically Stable Hydration Status: Adequately Hydrated Nausea & Vomiting: No Nausea or Vomiting Pain: Pt. Denies Any Pain Peripheral Nerve Block: Patient did not receive a nerve block
[2023-09-04 12:15] VITALS: BP 106/77; PULSE 82; RESP 16; TEMP 36.6; O2SAT 97
== END 2023-09-04 12:40 | disposition home or self-care (01) ==
PROVIDERS: PCP Family Medicine; Visit Provider Student in an Organized Health Care Education/Training Program
PROC: (CPT 45380; principal; 2023-09-04 12:00)
DX: Z12.11 Encounter for screening for malignant neoplasm of colon (principal); I10 Essential (primary) hypertension; K31.7 Polyp of stomach and duodenum; K29.80 Duodenitis without bleeding; K22.70 Barrett's esophagus without dysplasia; D12.3 Benign neoplasm of transverse colon; K64.0 First degree hemorrhoids; K57.30 Diverticulosis of large intestine without perforation or abscess without bleeding; Z80.0 Family history of malignant neoplasm of digestive organs; K31.89 Other diseases of stomach and duodenum
CPT/HCPCS: 45380; 43239; 00123; 88305; J2001; J2704

== ENCOUNTER → 2024-01-18 09:06 | Outpatient (BNVA) | payer MEDICARE, BC, SELFPAY | PROVIDERS: PCP Family Medicine; Referring Provider Family Medicine; Visit Provider Physician Assistant | DX: M17.12 Unilateral primary osteoarthritis, left knee (principal) | CPT/HCPCS: 20610; J1010 ==

== ENCOUNTER 2024-08-15 11:21 | Outpatient (CLI) | payer MEDICARE, BC, SELFPAY ==
[2024-08-15 12:02] LABS: Anion Gap 8.3 mmol/L (3-11); BUN 26 mg/dL (7-18); CO2 29.7 mmol/L (21.0-32.0); CREATININE 1.3 mg/dL (0.70-1.30); Calcium 9.7 mg/dL (8.5-10.1); Chloride 101 mmol/L (98-107); Estimated GFR 58.01 (mL/min/1.73m2); Glucose 96 mg/dL (74-106); Potassium 3.9 mmol/L (3.5-5.1); Sodium 139 mmol/L (136-145)
== END 2024-08-15 11:22 | disposition home or self-care (01) ==
LOC: LBO 11:22
PROVIDERS: PCP Family Medicine; Visit Provider Family Medicine
DX: I10 Essential (primary) hypertension (principal)
CPT/HCPCS: 36415; 80048

== ENCOUNTER 2024-09-15 13:32 | Outpatient (CLI) | payer MEDICARE, BC, SELFPAY ==
--- NOTE | 2024-09-15 12:45 | DI.RAD_ITS ---
Exam(s) XR KNEE RT 2V AP,LAT EXAM: XR KNEE RT 2V AP,LAT CLINICAL HISTORY: ANNUAL F/U R TKA. TECHNIQUE: 2D digital imaging was performed. Two images were obtained. AP and lateral views were obtained. COMPARISON: CR XR KNEE RT 2V AP,LAT from 08/20/2023 FINDINGS: BONES: There are stable post operative changes of a right total knee arthroplasty present. No fracture or dislocation. JOINTS: The orthopedic hardware is in good position. No evidence of hardware loosening. SOFT TISSUE: Atherosclerotic calcification is present. IMPRESSION: Stable right total knee arthroplasty. DATA REPOSITORY: RADIATION DOSE DELIVERED:
== END 2024-09-15 13:33 | disposition home or self-care (01) ==
LOC: DIORS 13:33
PROVIDERS: PCP Family Medicine; Referring Provider Family Medicine; Visit Provider Student in an Organized Health Care Education/Training Program
DX: M17.12 Unilateral primary osteoarthritis, left knee (principal); Z96.651 Presence of right artificial knee joint
CPT/HCPCS: 99213; 20610; J1010; 73560

== ENCOUNTER → 2025-01-19 12:55 | Outpatient (BNVA) | payer MEDICARE, BC, SELFPAY | PROVIDERS: PCP Family Medicine; Referring Provider Family Medicine; Visit Provider Student in an Organized Health Care Education/Training Program | DX: M17.12 Unilateral primary osteoarthritis, left knee (principal) | CPT/HCPCS: 20610; J1010 ==